=== PATIENT | male | born 1965 | race Caucasian/White ===

== ENCOUNTER → 2017-03-31 09:00 | Day surgery (SDC) | payer OTHER ==
[~2017-03-31 09:00] MED LIST: Buffered Lidocaine 0.9% SYRIN* 5 ML/SYR SYRINGE INTRADERM ONE; Buffered Lidocaine 0.9% SYRIN* 5 ML/SYR SYRINGE ONE; Bupivacaine 0.25% SDV* 30 ML ONE; Clindamycin 900 MG IVPREMIX(* 900 MG/50 ML SDV IV ONE; DiMENhydriNATE IV* 50 MG/ML VIAL IV PUSH PRN; Lidocaine 1% MPF wEPI 200,000* 30 ML SDV ONE; Lidocaine 2% PF * 5 ML VIAL ONE; Propofol* 10 MG/ML 20 ML BTL IV PUSH ONE; Sodium Citrate/Citric Acid* 15 ML UDC ONE; Sodium Citrate/Citric Acid* 15 ML UDC PO ONE; celeCOXIB CAP* 100 MG ONE; celeCOXIB CAP* 200 MG PO ONE; fentaNYL* 50 MCG/ML 2 ML VIAL (100 MCG VIAL) IV PRN; fentaNYL* 50 MCG/ML 2 ML VIAL (100 MCG VIAL) ONE; oxyCODONE/Acetamin 5/325 MG* TAB ONE; oxyCODONE/Acetamin 5/325 MG* TAB PO PRN
[2017-03-31 13:33] VITALS: BP 113/85
--- NOTE | 2017-04-01 07:44 | OP ---
DATE OF OPERATION: 03/31/17 [facility] DATE OF : 63 ATTENDING SURGEON: Parth Alvarado MD SURVEY METHODOLOGIST: None. ANESTHESIOLOGIST: Dr. Kelly. ANESTHESIA: General. PRE-OP DIAGNOSIS: Right knee medial meniscus tear. POST-OP DIAGNOSES: Right knee medial and lateral meniscus tears with minimal osteoarthritis. OPERATIVE PROCEDURES: 1. Right knee partial medial meniscectomy. 2. Partial lateral meniscectomy. 3. Small chondroplasty. COMPLICATIONS: None. ESTIMATED BLOOD LOSS: Minimal. INDICATIONS: Aroldo Yates is a 51-year-old male who sustained injury to his knee. He has had mechanical symptoms of medial catching and locking of the knee. He has failed conservative management and elected to proceed with operative procedure. He has minimal arthritis based on x-rays and MRIs and was ready to proceed with surgery. Risks include but are not limited to bleeding, infection, damage to nerves, vessels, surrounding structures, wound nonhealing, persistent pain, need for further surgery, scaring stiffness, risk of anesthesia , and risk of DVT; he had elected to proceed. DESCRIPTION OF PROCEDURE: The patient was greeted in the attending surgeon. Correct extremity was marked, consent was confirmed. The patient was brought back to the operative suite where he was placed in the supine position on the operating room table. He then underwent general anesthesia with LMA intubation after which an unsterile tourniquet was placed high in the proximal thigh. The lateral post was positioned properly. The right leg was then prepped and draped in the usual sterile fashion beginning with chlorhexidine soap, scrub, and alcohol wipe, and a final prep with ChloraPrep. After appropriate surgical pause indicating side, site, procedure, and administration of antibiotics an 18-gauge needle was used to inject 30 cc of sterile saline into the the knee to insufflate this. The lateral portal was made in an outside-in fashion. The scope was positioned in the joint, the joint was examined. There were grade 0 to 1 changes in the patello-femoral joint with no chondromalacia. Medial and lateral gutters were intact but with abundant hyperemia, but no loose bodies. The scope was positioned into the notch. There was abundant hyperemic tissue there and the anteromedial portal was made using an 18 gauge needle for localization and shaver was used to debride the tissues back. The tissue was very friable and the knee was quite injected; therefore, electrocautery was used to help maintain hemostasis. The ACL was intact, PCL was intact. The scope was brought to the medial compartment. There were grade 0 to 1 changes at the medial femoral condyle and medial tibial plateau. There is abundant degenerative complex tear of the medial meniscus involving the posterior horn and the body with unstable flaps. The shaver and biters were used to debride this back. The probe was then used to make sure that there were no trapped flaps in the gutters. Once this was completed attention was directed to the lateral compartment. The lateral compartment had grade 0 changes. The lateral tibial plateau had areas of grade 1 to 2 changes anteriorly and then grade 0 to 1 changes posteriorly. There was tearing and mild fraying of the body of the meniscus as well as the posterior horn of the lateral meniscus. This was debrided back using a shaver. Small chondroplasty was done of the plateau. Once this was done attention was directed back to the medial compartment to make sure there was again no debris and no free flaps remaining. The scope was placed in the supra-patellar pouch and there was a small area of grade 1 chondrosis of the patellar facet that was superior laterally based. The knee was sterile lavaged with sterile saline. All loose fluid and debris was removed from the joint. The wounds were irrigated with sterile saline. They were closed with 3-0 nylon in an interrupted fashion. The knee was intra-articularly injected with 0.25% Marcaine plain. Sterile dressings were applied as well as the Cryo/Cuff. He was awoken from anesthesia and transferred to PACU in stable condition. POSTOPERATIVE PLAN: He will be weight bearing as tolerated with range of motion as tolerated. He will be sent home on pain medication and will be on aspirin twice a day for approximately 10 days for DVT prophylaxis. He has no personal history of DVT but he has a brother who did. I will see the patient back in 10 to 14 days. [id number]/[facility] #: [id number] JAME
== END | disposition home or self-care (01) ==
LOC: OR 09:00
PROVIDERS: ATTEND Orthopaedic Surgery
DX: S83.231A Complex tear of medial meniscus, current injury, right knee, initial encounter (principal); S83.281A Other tear of lateral meniscus, current injury, right knee, initial encounter; M17.11 Unilateral primary osteoarthritis, right knee; X58.XXXA Exposure to other specified factors, initial encounter; Y92.9 Unspecified place or not applicable; Z88.0 Allergy status to penicillin
CPT/HCPCS: A9270-GY; J2001; J2704; J3010

== ENCOUNTER 2017-05-16 05:49 | Emergency (ER) | payer OTHER ==
[2017-05-16 06:41] LABS: Hematocrit 44 % (42-52); Mean Corpuscular HGB Conc 34 g/dl (31-36); Mean Corpuscular Hemoglobin 31 pg (27-31); Mean Corpuscular Volume 92 fL (80-94); Mean Platelet Volume 8 um3 (7.4-10.4); Red Blood Count 4.78 10^6/ul (4.0-5.4); Red Cell Distribution Width 13 % (10.5-15); White Blood Count 5.3 10^3/ul (3.5-10.8)
--- NOTE | 2017-05-16 06:54 | ED ---
Ernestine Dozier Edward, scribed for Sanford Borrero on 05/16/17 at 0616 . GI/ HPI - HPI Summary HPI Summary: 51 y/o male presents to the ED c/o bilateral flank pain described as a tight, pressure that woke up him this morning. The pain starts at the R groin but radiates along the bottom of the ABD to both flanks. The pt also c/o intermittent sharp pain in the same area. Denies fever, blood in urine. Sx bowel resection 6 years ago, knee surgery. - History of Current Complaint Chief Complaint: EDFlankPain Stated Complaint: ABDOMINAL PAIN Hx Obtained From: Patient Onset/Duration: Started Minutes Ago Timing: Constant, Intermittent - sharp pain is intermittent Pain Intensity: 0 Location of Pain: Groin - R groin Pain Radiates to: Flank - bilateral Associated Signs and Symptoms: Positive: Flank Pain. Negative: Fever, Hematuria - Allergy/Home Medications Allergies/Adverse Reactions: Allergies Allergy/AdvReac Type Severity Reaction Status Date / Time Morphine Allergy Severe Vomiting Verified 05/16/17 05:54 Penicillin G Allergy Unknown Rash And Verified 05/16/17 05:54 Itching PMH/Surg Hx/FS Hx/Imm Hx Previously Healthy: No Endocrine/Hematology History: Denies: Hx Diabetes Cardiovascular History: Denies: Hx Hypertension, Hx Pacemaker/ICD GI History: Reports: Hx Gastroesophageal Reflux Disease, Hx Hiatal Hernia, Other GI Disorders - hx diverticulitis with colon resection 2011 History: Reports: Other Problems/Disorders - BPH, TAKES RX Denies: Hx Renal Disease Musculoskeletal History: Reports: Other Musculoskeletal History - meniscal tear right knee Sensory History: Reports: Hx Contacts or Glasses - GLASSES Denies: Hx Hearing Aid Opthamlomology History: Reports: Hx Contacts or Glasses - GLASSES Psychiatric History: Denies: Hx Panic Disorder - Surgical History Surgery Procedure, Year, and Place: bowel resection r/t diverticulitis 2011, [facility] Hx Anesthesia Reactions: No Infectious Disease History: No Infectious Disease History: Denies: Hx Hepatitis, Traveled Outside the [place] in Last 30 Days - Family History Known Family History: Positive: Hypertension, Other - arthritis. Father - colon CA. Brother - prostate CA, skin CA. - Social History Alcohol Use: Weekly Alcohol Amount: 4 DRINKS/WEEK Hx Substance Use: No Substance Use Type: Reports: None Hx Tobacco Use: Yes Smoking Status (MU): Former Smoker Type: Cigarettes Amount Used/How Often: SOCIAL SMOKER, 2 CIGARETTES/DAY FOR 2 YRS Length of Time of Smoking/Using Tobacco: 2 YRS Have You Smoked in the Last Year: No Review of Systems Constitutional: Negative Eyes: Negative ENT: Negative Cardiovascular: Negative Respiratory: Negative Gastrointestinal: Negative Positive: flank pain - starting at R groin Musculoskeletal: Negative Skin: Negative Neurological: Negative Psychological: Normal All Other Systems Reviewed And Are Negative: Yes Physical Exam Triage Information Reviewed: Yes Vital Signs On Initial Exam: Initial Vitals Temp Pulse Resp BP Pulse Ox 97.2 F 78 14 151/105 98 05/16/17 05:51 05/16/17 05:51 05/16/17 05:51 05/16/17 05:51 05/16/17 05:51 Vital Signs Reviewed: Yes Appearance: Positive: Well-Appearing, No Pain Distress Skin: Positive: Warm, Skin Color Reflects Adequate Perfusion, Dry Head/Face: Positive: Normal Head/Face Inspection Eyes: Positive: EOMI, DARINEL ENT: Positive: Normal ENT inspection Neck: Positive: Supple, Nontender Respiratory/Lung Sounds: Positive: Clear to Auscultation, Breath Sounds Present Cardiovascular: Positive: RRR, Pulses are Symmetrical in both Upper and Lower Extremities Abdomen Description: Positive: Soft, Other: - Mild tenderness @ RLQ Bowel Sounds: Positive: Present Musculoskeletal: Positive: Normal, Strength/ROM Intact Neurological: Positive: Normal, Sensory/Motor Intact, Alert, Oriented to Person Place, Time Psychiatric: Positive: Normal Diagnostics - Vital Signs Vital Signs Temp Pulse Resp BP Pulse Ox 05/16/17 05:51 97.2 F 78 14 151/105 98 - Laboratory Lab Results: Lab Results 05/16/17 Range/Units 06:30 WBC 5.3 (3.5-10.8) 10^3/ul RBC 4.78 (4.0-5.4) 10^6/ul Hgb 15.0 (14.0-18.0) g/dl Hct 44 (42-52) % MCV 92 (80-94) fL MCH 31 (27-31) pg MCHC 34 (31-36) g/dl RDW 13 (10.5-15) % Plt Count 229 (150-450) 10^3/ul MPV 8 (7.4-10.4) um3 Neut % (Auto) 66.0 (38-83) % Lymph % (Auto) 21.7 L (25-47) % [place] % (Auto) 8.6 (1-9) % Eos % (Auto) 2.6 (0-6) % Baso % (Auto) 1.1 (0-2) % Absolute Neuts (auto) 3.5 (1.5-7.7) 10^3/ul Absolute Lymphs (auto) 1.2 (1.0-4.8) 10^3/ul Absolute Monos (auto) 0.5 (0-0.8) 10^3/ul Absolute Eos (auto) 0.1 (0-0.6) 10^3/ul Absolute Basos (auto) 0.1 (0-0.2) 10^3/ul Absolute Nucleated RBC 0 10^3/ul Nucleated RBC % 0 Result Diagrams: 05/16/17 06:30 Lab Statement: Any lab studies that have been ordered have been reviewed, and results considered in the medical decision making process. GIGU Course/Dx - Course Assessment/Plan: 51 y/o male presents to the ED c/o bilateral flank pain described as a tight, pressure that woke up him this morning. The pain starts at the R groin but radiates along the bottom of the ABD to both flanks. The pt also c/o intermittent sharp pain in the bilateral flanks. Denies fever, blood in urine. Sx bowel resection 6 years ago, knee surgery. Pt will be signed out to Dr. Mcpherson at shift change pending CT results and dispo. - Diagnoses Differential Diagnoses - Male: Diverticulitis, Appendicitis, Renal Colic, Urinary Tract Infection Provider Diagnoses: flank pain , rule out renal calculi Discharge - Discharge Plan Condition: Stable Disposition: OTHER Discharge Disposition Comment: Pt will be signed out to Dr. Mcpherson pending CT results and dispo Referrals: Santiago Landeros MD [Primary Care Provider] - The documentation as recorded by the Ernestine iglesias Edward accurately reflects the service I personally performed and the decisions made by Gissell corral Emmanuel.
[2017-05-16 06:56] LABS: Albumin 4.4 g/dL (3.2-5.2); BUN/Creatinine Ratio 12.5 (8-20); Calcium 9.6 mg/dL (8.6-10.3); EGFR African American 88.5 (>60); EGFR Non-African American 68.8 (>60); Globulin 2.8 g/dL (2-4); Potassium 3.7 mmol/L (3.5-5.0); Total Bilirubin 0.8 mg/dL (0.2-1.0); Total Protein 7.2 g/dL (6.4-8.9)
[2017-05-16 07:08] LABS: Urine Bilirubin Negative (Negative); Urine Glucose Negative (Negative); Urine Nitrite Negative (Negative)
[2017-05-16] MEDS ORDERED: Magnesium CITRATE* 300 ML BTL PO ONE (07:47)
[2017-05-16] MEDS ORDERED: Polyethylene Glycol 3350* 17 GM PACKET PO PRN (07:47)
[2017-05-16 08:06] VITALS: BP 141/76
--- NOTE | 2017-05-16 09:53 | PN ---
Ese Dozier SooYoung, scribed for Jeffry Mcpherson MD on 05/16/17 at 0754 . Progress Note - Progress Note Date of Service: 05/16/17 Note: Sign out from Dr. Borrero at shift change, pending CT A/P results. 0752: ED physician at bedside Reviewing CT A/P results with pt. Pt voiced understanding. DIAGNOSTIC: ABD/PEL CT as read by radiologist: Negative for L or R urinary tract stone or obstruction. No bowel obstruction. Abundant stool in the colon/constipation. Nml appy. Negative for diverticulitis or colitis. Somewhat enlarged prostate. Nml liver. Nml gallbladder. Nml spleen. Nml pancreas. Nml adrenal glands. Otherwise no acute abnormalities. ED physician has reviewed this radiology report and agrees. I believe all symptoms are secondary to his constipation. Patient given Miralax and magnesium citrate. Will discharge patient home with F/U of PCP. I discussed all the findings and test results with the patient. Patient was instructed to return to the emergency room immediately if any of the symptoms return or worsens. Plan of care was discussed with the patient and understands and agrees. All questions were answered at patient satisfaction. There were no further complaints or concerns. Lung exam before discharge: CTA B/L. Good air exchange. No wheezing or crackles heard. CVS: S1 and S2 present. No murmurs appreciated. Patient is alert and oriented x 3. Patient is hemodynamically stable. Patient will be discharged home with follow up PCP in the next 2-3 days DX: Constipation. Abd pain. DISPO: Stable, home. F/U with PCP in 2 days. Rx: Miralax and Mg Citrate. The documentation as recorded by the Ese iglesias SooYoung accurately reflects the service I personally performed and the decisions made by Ky corral Walter, MD.
--- NOTE | 2017-05-16 09:57 | RAD ---
INDICATION: Intermittent RIGHT flank pain for several weeks. Previous bowel resection due to diverticulitis. COMPARISON: April 29, 2016 TECHNIQUE: Multidetector CT images were obtained from the lung bases to the ischial tuberosities. Evaluation of the viscera is limited without IV contrast. Multiplanar reformation. REPORT: Unremarkable visualized inferior thorax. The liver, gallbladder, pancreas, and spleen are unremarkable. Negative for CT abnormality of the upper GI, small bowel, retrocecal appendix. Distal sigmoid bowel anastomosis. Hyperdense enteric contrast appearing material versus food stuff within the colon. No suspicious finding of the colon. Negative for ascites, free air, hernias. Normal adrenal glands. Small LEFT parapelvic renal cysts. Negative for hydronephrosis. Unremarkable RIGHT ureter. Small vascular calcification visualized adjacent to the distal LEFT ureter without concern. No periureteral inflammatory change. Unremarkable urinary bladder. Negative for lymphadenopathy. Mild atherosclerotic calcification of normal diameter abdominal aorta and iliac arteries. Physiologic distention of the IVC. Reactive endplate sclerosis at L5-S1 due to degenerative spondylosis without change. Mild anterior column compression deformity at the superior endplate of L2 without change. No suspicious focal osseous lesions. IMPRESSION: 1. Negative for urolithiasis or hydronephrosis. 2. No acute abdominal pelvic pathologic process evident.
== END 2017-05-16 08:06 | disposition home or self-care (01) ==
LOC: ED 05:49
DX: R10.9 Unspecified abdominal pain (principal); F17.210 Nicotine dependence, cigarettes, uncomplicated; Z88.5 Allergy status to narcotic agent; Z88.0 Allergy status to penicillin; K21.9 Gastro-esophageal reflux disease without esophagitis; K59.00 Constipation, unspecified
CPT/HCPCS: 36415; 74176; 80053; 81003; 83690; 85025; 99282; A9270-GY

== ENCOUNTER 2017-05-18 05:14 | Emergency (ER) | payer OTHER ==
[2017-05-18 06:16] LABS: Hematocrit 45 % (42-52); Hemoglobin 15.2 g/dl (14.0-18.0); Mean Corpuscular HGB Conc 34 g/dl (31-36); Mean Corpuscular Hemoglobin 31 pg (27-31); Mean Corpuscular Volume 92 fL (80-94); Mean Platelet Volume 8 um3 (7.4-10.4); Red Cell Distribution Width 13 % (10.5-15); White Blood Count 5.6 10^3/ul (3.5-10.8)
[2017-05-18 06:27] LABS: Urine Bilirubin Negative (Negative); Urine Glucose Negative (Negative); Urine Nitrite Negative (Negative)
[2017-05-18 06:36] LABS: Albumin 4.3 g/dL (3.2-5.2); BUN/Creatinine Ratio 9.8 (8-20); Calcium 9.7 mg/dL (8.6-10.3); EGFR African American 72.6 (>60); EGFR Non-African American 56.5 (>60); Globulin 2.8 g/dL (2-4); Total Bilirubin 0.8 mg/dL (0.2-1.0); Total Protein 7.1 g/dL (6.4-8.9)
[2017-05-18 06:44] VITALS: BP 140/95
--- NOTE | 2017-05-18 06:44 | ED ---
Mounika Dozier Thomas, scribed for Sanford Brorero on 05/18/17 at 0535 . Abdominal Pain/Male - HPI Summary HPI Summary: The pt is a 51 y/o M presenting to the ED c/o RLQ pain that began 5-7 days ago but worsened last night. The pain is described as sharp. The pain is intermittent. The pain is rated 10/10. The pain is aggravated by nothing and is alleviated by nothing. Previously, the patient was constipated, although he took laxatives and had a BM. Pt denies N/V/D. - History of Current Complaint Chief Complaint: EDAbdPain Stated Complaint: RLQ PAIN Time Seen by Provider: 05/18/17 05:23 Hx Obtained From: Patient Onset/Duration: Lasting Days - onset of pain 5-7 days ago, Still Present, Worse Since - last night Timing: Intermittent Severity Currently: Severe Pain Intensity: 10 Pain Scale Used: 0-10 Numeric Location: Discrete At: RLQ Radiates: No Character: Sharp Aggravating Factor(s): Nothing Alleviating Factor(s): Nothing Associated Signs And Symptoms: Positive: Constipation - earlier, patient was constipated, but he took laxatives. Negative: Nausea, Vomiting, Diarrhea - Allergies/Home Medications Allergies/Adverse Reactions: Allergies Allergy/AdvReac Type Severity Reaction Status Date / Time Morphine Allergy Severe Vomiting Verified 05/18/17 05:20 Penicillin G Allergy Unknown Rash And Verified 05/18/17 05:20 Itching PMH/Surg Hx/FS Hx/Imm Hx Previously Healthy: No Endocrine/Hematology History: Denies: Hx Diabetes Cardiovascular History: Denies: Hx Hypertension, Hx Pacemaker/ICD GI History: Reports: Hx Gastroesophageal Reflux Disease, Hx Hiatal Hernia, Other GI Disorders - hx diverticulitis with colon resection 2011 History: Reports: Other Problems/Disorders - BPH, TAKES RX Denies: Hx Renal Disease Musculoskeletal History: Reports: Other Musculoskeletal History - meniscal tear right knee Sensory History: Reports: Hx Contacts or Glasses - GLASSES Denies: Hx Hearing Aid Opthamlomology History: Reports: Hx Contacts or Glasses - GLASSES Psychiatric History: Denies: Hx Panic Disorder - Surgical History Surgery Procedure, Year, and Place: bowel resection r/t diverticulitis 2011, [facility] Hx Anesthesia Reactions: No - Immunization History Date of Tetanus Vaccine: unk Date of Influenza Vaccine: 2017 Infectious Disease History: No Infectious Disease History: Denies: Hx Hepatitis, Traveled Outside the [place] in Last 30 Days - Family History Known Family History: Positive: Hypertension, Other - arthritis. Father - colon CA. Brother - prostate CA, skin CA. - Social History Alcohol Use: Weekly Alcohol Amount: 4 DRINKS/WEEK Hx Substance Use: No Substance Use Type: Reports: None Hx Tobacco Use: Yes Smoking Status (MU): Former Smoker Type: Cigarettes Amount Used/How Often: SOCIAL SMOKER, 2 CIGARETTES/DAY FOR 2 YRS Length of Time of Smoking/Using Tobacco: 2 YRS Have You Smoked in the Last Year: No Review of Systems Negative: Fever Positive: Abdominal Pain - sharp, RLQ, Other - Constipation. Negative: Vomiting , Diarrhea, Nausea All Other Systems Reviewed And Are Negative: Yes Physical Exam - Summary Physical Exam Summary: Appearance: Well appearing, no pain distress Skin: warm, dry, reflects adequate perfusion Head/face: normal Eyes: EOMI, DARINEL ENT: normal Neck: supple, nontender Respiratory: CTA, breath sounds present Cardiovascular: RRR, pulses symmetrical Abdomen: soft. He has mild discomfort to palpation in his RLQ. Bowel: present Musculoskeletal: normal, strength/ROM intact Neuro: normal, sensory motor intact, A&Ox3 Triage Information Reviewed: Yes Vital Signs On Initial Exam: Initial Vitals Temp Pulse Resp BP Pulse Ox 97.3 F 109 18 153/113 95 05/18/17 05:17 05/18/17 05:17 05/18/17 05:17 05/18/17 05:17 05/18/17 05:17 Vital Signs Reviewed: Yes Diagnostics - Vital Signs Vital Signs Temp Pulse Resp BP Pulse Ox 05/18/17 05:17 97.3 F 109 18 153/113 95 - Laboratory Lab Results: Lab Results 05/18/17 05/18/17 05/18/17 Range/Units 06:02 06:02 06:08 WBC 5.6 (3.5-10.8) 10^3/ul RBC 4.90 (4.0-5.4) 10^6/ul Hgb 15.2 (14.0-18.0) g/dl Hct 45 (42-52) % MCV 92 (80-94) fL MCH 31 (27-31) pg MCHC 34 (31-36) g/dl RDW 13 (10.5-15) % Plt Count 253 (150-450) 10^3/ul MPV 8 (7.4-10.4) um3 Neut % (Auto) 65.7 (38-83) % Lymph % (Auto) 22.0 L (25-47) % [place] % (Auto) 9.8 H (1-9) % Eos % (Auto) 1.6 (0-6) % Baso % (Auto) 0.9 (0-2) % Absolute Neuts (auto) 3.7 (1.5-7.7) 10^3/ul Absolute Lymphs (auto) 1.2 (1.0-4.8) 10^3/ul Absolute Monos (auto) 0.5 (0-0.8) 10^3/ul Absolute Eos (auto) 0.1 (0-0.6) 10^3/ul Absolute Basos (auto) 0 (0-0.2) 10^3/ul Absolute Nucleated RBC 0 10^3/ul Nucleated RBC % 0 Sodium 136 (133-145) mmol/L Potassium 4.0 (3.5-5.0) mmol/L Chloride 103 (101-111) mmol/L Carbon Dioxide 28 (22-32) mmol/L Anion Gap 5 (2-11) mmol/L BUN 13 (6-24) mg/dL Creatinine 1.33 H (0.67-1.17) mg/dL Est GFR ( Amer) 72.6 (>60) Est GFR (Non-Af Amer) 56.5 (>60) BUN/Creatinine Ratio 9.8 (8-20) Glucose 104 H (70-100) mg/dL Calcium 9.7 (8.6-10.3) mg/dL Total Bilirubin 0.80 (0.2-1.0) mg/dL AST 14 (13-39) U/L ALT 13 (7-52) U/L Alkaline Phosphatase 53 (34-104) U/L Troponin I 0.00 (<0.04) ng/mL Total Protein 7.1 (6.4-8.9) g/dL Albumin 4.3 (3.2-5.2) g/dL Globulin 2.8 (2-4) g/dL Albumin/Globulin Ratio 1.5 (1-3) Lipase 12 (11.0-82.0) U/L Urine Color Yellow Urine Appearance Clear Urine pH 6.0 (5-9) Ur Specific [place] 1.017 (1.010-1.030) Urine Protein Negative (Negative) Urine Ketones Negative (Negative) Urine Blood Negative (Negative) Urine Nitrate Negative (Negative) Urine Bilirubin Negative (Negative) Urine Urobilinogen Negative (Negative) Ur Leukocyte Esterase Negative (Negative) Urine Glucose Negative (Negative) Urine Ascorbic Acid * H (Negative) Result Diagrams: 05/18/17 06:02 05/18/17 06:02 Lab Statement: Any lab studies that have been ordered have been reviewed, and results considered in the medical decision making process. - Radiology XR Abdomen Xray Interpretation: No Acute Changes - Fecal impaction Radiology Interpretation Completed By: ED Physician Abdominal Pain Fem Course/Dx - Course Assessment/Plan: The pt is a 51 y/o M c/o RLQ pain that began 5-7 days ago but worsened last night. Bloodwork, UA, and imaging were obtained. The patient will be discharged with follow up with primary care in 3 days. - Diagnoses Differential Diagnosis/HQI/PQRI: Bowel Obstruction, Urinary Tract Infection, Other - constipation Provider Diagnoses: Abdominal pain, Constipation Discharge - Discharge Plan Condition: Stable Disposition: HOME Patient Education Materials: Abdominal Pain (ED), Constipation (ED) Referrals: Santiago Landeros MD [Primary Care Provider] - 3 Days Additional Instructions: Follow up with your primary care provider in three days. Return to the emergency room for any new or worsening symptoms. The documentation as recorded by the Mounika iglesias Thomas accurately reflects the service I personally performed and the decisions made by Gissell corral Emmanuel.
--- NOTE | 2017-05-18 08:19 | RAD ---
INDICATION: Right flank pain COMPARISON: CT abdomen pelvis May 16, 2017 TECHNIQUE: 2 views the abdomen were obtained. FINDINGS: A large amount of stool is noted overlying the cecum and a sending colon. There is mostly gas and stool overlying the more distal colon including the rectum. There are no obvious coarse calcifications overlying the expected location of the bilateral collecting systems or ureters. There is surgical material at the midline pelvis. IMPRESSION: 1. NO LARGE RENAL CALCULI VISUALIZED. 2. INCIDENTALLY NOTED IS A LARGE AMOUNT OF STOOL OVERLYING THE CECUM AND ASCENDING COLON. PLEASE CORRELATE TO SIGNS AND SYMPTOMS OF CONSTIPATION.
== END 2017-05-18 06:49 | disposition home or self-care (01) ==
LOC: ED 05:14
DX: R10.31 Right lower quadrant pain (principal); K59.00 Constipation, unspecified; K21.9 Gastro-esophageal reflux disease without esophagitis; Z87.891 Personal history of nicotine dependence
CPT/HCPCS: 36415; 74000; 80053; 81003; 83690; 84484; 85025; 99282

== ENCOUNTER 2019-01-28 18:12 | Emergency (ER) | payer OTHER ==
--- OUTSIDE RECORDS SUMMARY | 2019-01-28 18:35 | XMS REPORT | Continuity of Care Document ---
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 Onset: 01/29/2011 Benign prostatic hypertrophy without Roopa Snider M.D. Onset: 01/29/2011 outflow obstruction Neck pain Roopa Snider M.D. Onset: 09/14/2011 Colitis, enteritis and gastroenteritis Roopa Snider M.D. Onset: 12/01/2011 presumed infectious Disorder of shoulder Roopa Snider M.D. Onset: 12/08/2011 Right lower quadrant pain Roopa Snider M.D. Onset: 12/29/2011 Diverticulitis of colon Roopa Snider M.D. Onset: 01/14/2012 Hemorrhoids without complication Roopa Snider M.D. 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 Onset: 02/02/2012 Generalized abdominal pain Roopa Snider M.D. Onset: 09/16/2012 Acute pharyngitis Roopa Snider M.D. Onset: 09/19/2012 Localized, primary osteoarthritis of the Roopa Snider M.D. Onset: 2013 hand Bunion Roopa Snider M.D. Onset: 07/31/2013 First degree hemorrhoids Mulugeta Ha M.D. Onset: 07/15/2015 Gastroesophageal reflux disease Roopa Snider M.D. Onset: 10/04/2015 Nausea Roopa Snider M.D. Onset: 05/17/2017 Irritable bowel syndrome characterized by Roopa Snider M.D. Onset: 2017 constipation Right upper quadrant pain Roopa Snider M.D. Onset: 08/01/2018 Family History Date Family Member(s) Observation Comments Father due to Parkinson's Disease () Father Colon Cancer Father Prostate Cancer Mother due to Stroke () Mother Hypertension Mother Chronic Obstructive Pulmonary Disease (COPD) First Brother Prostate Cancer Second Brother Colon Polyps Social History Type Date Description Comments Sex Unknown Marital Status Patient is Living Situation Lives with spouse Diet Diet is healthy and well balanced Occupation [employer] Currently working Tobacco Use Start: Unknown Nonsmoker Smoking Status Reviewed: 05/21/17 Nonsmoker ETOH Use Social Alcohol Tobacco Use Start: Unknown Patient has never smoked Exercise Type/Frequency Exercises regularly Current Allergies, Adverse Reactions, Alerts Active Allergies Reaction Severity Comments Date Penicillin Rash 02/02/2012 Morphine 04/13/2017 Inactive Allergies NKDA 09/14/2011 Medications Active Medications SIG Qnty Indications Ordering Date Provider Magnesium Citrate 1 gm nightly Roopa Snider, 08/01/2018 M.D. 200mg Tablets Pepcid 1 PO bid For Stomach 60tabs Roopa Snider, 08/01/2018 20mg Tablets M.D. Dicyclomine HCL 1-2 four times a day 120caps Roopa Snider, 07/07/2018 as needed cramping M.D. 10mg Capsules or abd pain Linzess 3 by mouth every day 90caps K58.1 Roopa Snider, 03/15/2018 72mcg as needed for M.D. Capsules constipation Uroxatral 1 po qd For BPH Unknown 10mg Tablets ER 24HR History Medications Magnesium Citrate 1.5 GM Nightly Roopa Osborne 11/01/2017 - 200mg Leti M.DJohn 03/25/2018 Tablets Miralax 17 grams every day 48units Roopa Osborne 10/04/2017 - 3350NF Packet with large glass Manjit Snider.DJohn 11/01/2017 water as needed. Linzess take one capsule by 30caps K58.1 Roopa Osborne 10/04/2017 - 145mcg Capsules mouth every morning Leti M.DJohn 03/15/2018 prior to breakfast for constipation Dicyclomine HCL 1-2 four times a day 60caps Roopa Osbonre 10/04/2017 - 10mg as needed cramping or Midgiacomo, M.DJohn 11/01/2017 Capsules abd pain Mupirocin apply topically three 44gm M79.67 Rayna Anderson, 08/18/2017 - 2% Ointment times a day to 5 [facility] 10/04/2017 affected area(s) Amitriptyline HCL take 1 to 3 tablets 60tabs F41.1 Rayna Anderson, 2017 - 10mg by mouth at bedtime [facility] 10/04/2017 Tablets Ondansetron take one tablet by 30tabs R11.0 Roopa Osborne 05/17/2017 - 4mg Tablets mouth four times a Ana SniderDJohn 2017 Dispers day as needed for nausea Cyclobenzaprine HCL take 1 tablet by 30tabs Mulugeta Cowan 04/14/2017 - 5mg mouth three times a Holli Ha 04/24/2017 Tablets day For Muscle Spasm Omeprazole 1 by mouth every day 30caps K21.9 Roopa Osborne 10/04/2015 - 20mg Capsules as needed for Leti M.DJohn 04/13/2017 DR nathan No Active Medications Unknown 06/26/2015 - 10/04/2015 Ciprofloxacin HCL 1 by mouth twice a 20tabs Roopa Osborne 03/19/2015 - 250mg day Ana SniderDJohn 06/26/2015 Tablets No Active Medications Unknown 11/21/2014 - 03/19/2015 Anusol-HC apply twice a day as 30mg Roopa Osborne 04/23/2014 - 2.5% Cream needed Holli Snider 11/21/2014 Anusol-HC 1 per rectum bid prn 12units Roopa Osborne 04/23/2014 - 25mg Holli Snider 11/21/2014 Suppository No Active Medications Unknown 01/24/2014 - 04/23/[address] of rectum 28units 455.6 Blaise Brandon, 2012 - twice a day M.DJohn 07/31/2013 25mg Suppository No Active Medications Unknown 11/10/2012 - 06/16/2013 Azithromycin 2 po today and 1 po x 6tabs Roopa Osborne 09/20/2012 - 250mg 4 days Holli Snider 11/10/2012 Tablets No Active Medications Unknown 09/16/2012 - 09/19/2012 Physical Therapy treatment and Roopa Osborne 05/04/2012 - evaluation neck and Holli Snider 09/15/2012 left shoulder pain 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 No Holli Snider 09/15/2012 restrictions. Mupirocin apply tid 30gm 998.59 Roopa Osborne 02/02/2012 - 2% Ointment Holli Snider 09/15/2012 Sulfamethoxazole/Trime 1 po bid 20tabs 998.59 Roopa Osborne 02/02/2012 - thoprim DS Holli Snider 09/15/2012 800-160mg Tablets IV Change IV to be replaced and Roopa Osborne 01/12/2012 - left in for IV Holli Snider 02/02/2012 antibiotics dx: diverticulitis Work Excuse unable to work from Roopa Osborne 01/05/2012 - 12/30/11 until further Holli Snider 02/08/2012 notice due to illness. Anusol-HC 1 per rectum bid prn 12units Roopa Osborne 11/21/2007 - 25mg Holli Snider 09/15/2012 Suppository Physical Therapy treatment and Roopa Osborne 07/31/2004 - evaluation low back Holli Snider 03/08/2006 pain Naproxen 1 bid with food prn 40tabs Roopa Osorio. 07/31/2004 - 500mg Tablets Holli Snider 09/14/2011 Coumadin 2 qd Or as Directed 60tabs Roopa Osorio. - 2.5mg Tablets Holli Snider 09/15/2012 Pepcid take 1 tablet by Unknown - 10mg Tablets mouth qd prn 08/01/2018 Immunizations CPT Code Status Date Vaccine Lot # [id number] Given 05/17/2018 Influenza Vac, Quadriv[place], [place] [id number] Given 05/03/2017 Influenza Vac, [place], [place] [id number] Given 05/12/2016 Tdap Tetanus, W Pertussis [id number] Given 05/06/2016 Influenza Vac, [place] [id number] Given 04/17/2015 Influenza Vac, Quadrivalent, Slit Virus, Im Vital Signs Date Vital Result Comment 12/30/2018 1:18pm BP Systolic 110 mmHg BP Diastolic 72 mmHg Heart Rate 72 /min Body Temperature 97.8 F Respiratory Rate 18 /min Height 69.5 inches 5'9.50" Weight 168.00 lb BMI (Body Mass Index) 24.5 kg/m2 08/01/2018 3:13pm BP Systolic 110 mmHg BP Diastolic 76 mmHg Heart Rate 72 /min Body Temperature 98.0 F Respiratory Rate 16 /min Height 69.5 inches 5'9.50" Weight 172.00 lb BMI (Body Mass Index) 25.0 kg/m2 06/11/2018 10:52am BP Systolic 132 mmHg BP Diastolic 82 mmHg Heart Rate 68 /min Body Temperature 98.5 F Height 69.5 inches 5'9.50" Weight 172.00 lb BMI (Body Mass Index) 25.0 kg/m2 03/23/2018 3:30pm BP Systolic 116 mmHg BP Diastolic 82 mmHg Heart Rate 76 /min Body Temperature 97.5 F Height 69.5 inches 5'9.50" Weight 170.00 lb BMI (Body Mass Index) 24.7 kg/m2 03/02/2018 3:28pm BP Systolic 138 mmHg BP Diastolic 100 mmHg Heart Rate 72 /min Body Temperature 97.7 F Height 69.5 inches 5'9.50" Weight 170.00 lb BMI (Body Mass Index) 24.7 kg/m2 11/01/2017 2:41pm BP Systolic 120 mmHg BP Diastolic 70 mmHg Heart Rate 64 /min Body Temperature 98.0 F Respiratory Rate 16 /min Height 69.5 inches 5'9.50" Weight 169.00 lb BMI (Body Mass Index) 24.6 kg/m2 10/04/2017 10:06am BP Systolic 118 mmHg BP Diastolic 60 mmHg Heart Rate 64 /min Body Temperature 97.8 F Respiratory Rate 16 /min Height 69.5 inches 5'9.50" Weight 167.00 lb BMI (Body Mass Index) 24.3 kg/m2 08/18/2017 11:43am BP Systolic 110 mmHg BP Diastolic 78 mmHg Heart Rate 60 /min Body Temperature 98.0 F Respiratory Rate 16 /min Height 69.5 inches 5'9.50" Weight 164.00 lb BMI (Body Mass Index) 23.9 kg/m2 06/22/2017 3:43pm BP Systolic 118 mmHg BP Diastolic 78 mmHg Heart Rate 68 /min Body Temperature 98.1 F Respiratory Rate 16 /min Height 69.5 inches 5'9.50" Weight 166.50 lb BMI (Body Mass Index) 24.2 kg/m2 2017 8:56am BP Systolic 124 mmHg BP Diastolic 90 mmHg Heart Rate 88 /min Body Temperature 98.1 F Height 68.5 inches 5'8.50" measured 05/12/16 Weight 166.38 lb BMI (Body Mass Index) 24.9 kg/m2 05/17/2017 10:03am BP Systolic 120 mmHg BP Diastolic 80 mmHg Heart Rate 90 /min Body Temperature 98.1 F Respiratory Rate 16 /min Height 68.5 inches 5'8.50" measured 05/12/16 Weight 168.50 lb BMI (Body Mass Index) 25.2 kg/m2 05/14/2017 8:37am BP Systolic 126 mmHg BP Diastolic 80 mmHg Heart Rate 72 /min Body Temperature 97.7 F Respiratory Rate 16 /min Height 68.5 inches 5'8.50" measured 05/12/16 Weight 175.00 lb BMI (Body Mass Index) 26.2 kg/m2 04/13/2017 3:15pm Height 68.5 inches 5'8.50" measured 05/12/16 Weight 172.00 lb BMI (Body Mass Index) 25.8 kg/m2 05/12/2016 3:19pm BP Systolic 120 mmHg BP Diastolic 80 mmHg Heart Rate 72 /min Body Temperature 98.6 F Respiratory Rate 16 /min Height 68.5 inches 5'8.50" measured 05/12/16 Weight 172.12 lb BMI (Body Mass Index) 25.8 kg/m2 10/04/2015 2:01pm BP Systolic 128 mmHg BP Diastolic 84 mmHg Heart Rate 78 /min Body Temperature 98.1 F Respiratory Rate 16 /min Height 70 inches 5'10" Weight 182.12 lb BMI (Body Mass Index) 26.1 kg/m2 07/15/2015 10:06am BP Systolic 140 mmHg BP Diastolic 80 mmHg Heart Rate 68 /min Body Temperature 97.6 F Respiratory Rate 18 /min Height 70 inches 5'10" Weight 180.00 lb BMI (Body Mass Index) 25.8 kg/m2 06/26/2015 2:55pm BP Systolic 140 mmHg BP Diastolic 82 mmHg Heart Rate 76 /min Body Temperature 98.1 F Respiratory Rate 16 /min Height 70 inches 5'10" Weight 176.00 lb BMI (Body Mass Index) 25.3 kg/m2 03/19/2015 3:46pm BP Systolic 132 mmHg BP Diastolic 78 mmHg Heart Rate 68 /min Body Temperature 98.5 F Height 70 inches 5'10" Weight 174.00 lb BMI (Body Mass Index) 25.0 kg/m2 11/21/2014 1:55pm BP Systolic 120 mmHg BP Diastolic 80 mmHg Heart Rate 80 /min Body Temperature 98.3 F Respiratory Rate 18 /min Height 70 inches 5'10" Weight 176.00 lb BMI (Body Mass Index) 25.3 kg/m2 01/24/2014 11:23am BP Systolic 120 mmHg BP Diastolic 80 mmHg Heart Rate 68 /min Body Temperature 98.3 F Respiratory Rate 16 /min Height 70 inches 5'10" Weight 168.00 lb BMI (Body Mass Index) 24.1 kg/m2 07/31/2013 8:20am BP Systolic 124 mmHg BP Diastolic 82 mmHg Heart Rate 68 /min Body Temperature 97.8 F Respiratory Rate 16 /min Height 70 inches 5'10" Weight 178.00 lb BMI (Body Mass Index) 25.5 kg/m2 06/16/2013 1:18pm BP Systolic 122 mmHg BP Diastolic 74 mmHg Heart Rate 72 /min Body Temperature 97.4 F Height 70 inches 5'10" Weight 178.00 lb BMI (Body Mass Index) 25.5 kg/m2 05/01/2013 2:00pm BP Systolic 120 mmHg BP Diastolic 80 mmHg Heart Rate 92 /min Body Temperature 98.5 F Height 70 inches 5'10" Weight 170.00 lb BMI (Body Mass Index) 24.4 kg/m2 12/16/2012 8:18am BP Systolic 118 mmHg BP Diastolic 84 mmHg Heart Rate 78 /min Body Temperature 97.1 F Respiratory Rate 16 /min Height 70 inches 5'10" Weight 167.00 lb BMI (Body Mass Index) 24.0 kg/m2 11/10/2012 1:02pm BP Systolic 116 mmHg BP Diastolic 88 mmHg Heart Rate 90 /min Body Temperature 98.1 F Respiratory Rate 15 /min Height 70 inches 5'10" Weight 168.00 lb BMI (Body Mass Index) 24.1 kg/m2 09/19/2012 8:31am BP Systolic 100 mmHg BP Diastolic 70 mmHg Heart Rate 80 /min Body Temperature 97.5 F Height 70 inches 5'10" Weight 172.00 lb BMI (Body Mass Index) 24.7 kg/m2 09/16/2012 11:30am BP Systolic 130 mmHg BP Diastolic 88 mmHg Heart Rate 72 /min Body Temperature 98.1 F Height 70 inches 5'10" Weight 172.50 lb BMI (Body Mass Index) 24.7 kg/m2 02/02/2012 1:05pm BP Systolic 120 mmHg BP Diastolic 78 mmHg Heart Rate 72 /min Body Temperature 98.2 F Height 70 inches 5'10" Weight 166.00 lb BMI (Body Mass Index) 23.8 kg/m2 01/14/2012 11:28am BP Systolic 114 mmHg BP Diastolic 70 mmHg Heart Rate 68 /min Body Temperature 98.1 F Respiratory Rate 18 /min Height 70 inches 5'10" Weight 170.00 lb BMI (Body Mass Index) 24.4 kg/m2 12/29/2011 12:09pm BP Systolic 122 mmHg BP Diastolic 68 mmHg Heart Rate 110 /min Body Temperature 101.2 F Respiratory Rate 20 /min Height 70 inches 5'10" Weight 173.00 lb BMI (Body Mass Index) 24.8 kg/m2 12/08/2011 3:20pm BP Systolic 110 mmHg BP Diastolic 64 mmHg Heart Rate 60 /min Body Temperature 98.0 F Respiratory Rate 18 /min Height 70 inches 5'10" Weight 176.00 lb BMI (Body Mass Index) 25.3 kg/m2 12/01/2011 1:04pm BP Systolic 120 mmHg BP Diastolic 74 mmHg Heart Rate 66 /min Body Temperature 98.6 F Height 70 inches 5'10" Weight 178.00 lb BMI (Body Mass Index) 25.5 kg/m2 09/14/2011 1:59pm BP Systolic 132 mmHg BP Diastolic 80 mmHg Heart Rate 66 /min Body Temperature 98.3 F Height 70 inches 5'10" Weight 180.00 lb BMI (Body Mass Index) 25.8 kg/m2 01/29/2011 2:09pm BP Systolic 130 mmHg BP Diastolic 90 mmHg Heart Rate 72 /min Respiratory Rate 14 /min Height 70 inches 5'10" Weight 174.00 lb BMI (Body Mass Index) 25.0 kg/m2 08/21/2010 3:10pm BP Systolic 120 mmHg BP Diastolic 88 mmHg Heart Rate 72 /min Body Temperature 98.2 F Height 70 inches 5'10" Weight 181.00 lb BMI (Body Mass Index) 26.0 kg/m2 10/09/2009 4:04pm BP Systolic 140 mmHg BP Diastolic 88 mmHg Heart Rate 84 /min Height 70 inches 5'10" Weight 175.00 lb BMI (Body Mass Index) 25.1 kg/m2 08/30/2008 10:21am BP Systolic 138 mmHg BP Diastolic 84 mmHg Heart Rate 78 /min Body Temperature 98.1 F Height 70 inches 5'10" Weight 174.00 lb BMI (Body Mass Index) 25.0 kg/m2 Right Visual Acuity Distance 20/20 Corrected Left Visual Acuity Distance 20/20 Corrected 11/21/2007 8:14pm BP Systolic 114 mmHg BP Diastolic 64 mmHg Heart Rate 66 /min Height 70 inches 5'10" Weight 174.00 lb BMI (Body Mass Index) 25.0 kg/m2 06/28/2006 7:53pm BP Systolic 120 mmHg BP Diastolic 70 mmHg Heart Rate 76 /min Height 70 inches 5'10" Weight 175.00 lb BMI (Body Mass Index) 25.1 kg/m2 03/08/2006 6:08pm BP Systolic 120 mmHg BP Diastolic 76 mmHg Heart Rate 78 /min Height 70 inches 5'10" Weight 172.00 lb BMI (Body Mass Index) 24.7 kg/m2 10/09/2005 4:15pm BP Systolic 120 mmHg BP Diastolic 84 mmHg Body Temperature 98.5 F Height 70 inches 5'10" Weight 177.00 lb BMI (Body Mass Index) 25.4 kg/m2 07/31/2004 1:48pm BP Systolic 128 mmHg BP Diastolic 80 mmHg Heart Rate 72 /min Height 70 inches 5'10" Weight 173.00 lb BMI (Body Mass Index) 24.8 kg/m2 07/15/2004 3:33pm BP Systolic 130 mmHg BP Diastolic 80 mmHg Heart Rate 80 /min Height 70 inches 5'10" Weight 168.00 lb BMI (Body Mass Index) 24.1 kg/m2 07/02/2004 7:56pm BP Systolic 112 mmHg BP Diastolic 70 mmHg Heart Rate 80 /min Height 70 inches 5'10" Weight 172.00 lb BMI (Body Mass Index) 24.7 kg/m2 10/10/2003 6:34pm BP Systolic 128 mmHg BP Diastolic 88 mmHg Heart Rate 80 /min Height 70 inches 5'10" Weight 165.00 lb BMI (Body Mass Index) 23.7 kg/m2 Results Test Date Facility Test Result H/L Range Note Laboratory test [facility] Sedimentation Rate 3mm finding 9 (607)- - CBC Electronic [facility]) WBC 6.0 4.0-10.0 Fma 8 x10^3/UL RBC 5.12 x10^6/UL 3.93-6.00 HGB 16.1 g/dL 12.0-17.0 HCT 48 % 35-50 MCV 93.0 fL 80.0-95.0 MCH 31.4 pg 25.6-32.2 MCHC 33.8 g/dL 32.2-36.0 RDW-CV 12.8 % 11.6-14.4 PLT 250 x10^3/UL 163-400 MPV 10.4 fL 9.4-12.4 Jenny# 3.31 x10^3/UL 1.56-6.13 Lymph# 1.77 x10^3/UL 1.18-3.74 Sac# 0.55 x10^3/UL 0.24-0.82 Eos # 0.3 x10^3/UL 0.0-0.5 Baso # 0.02 x10^3/UL 0.01-0.08 Jenny% 55.8 % 34.0-70.0 Lymph % 29.7 % 20.0-52.0 Sac% 9.2 % 5.0-12.0 Eos% 4.7 % 0.7-7.0 Baso% 0.3 % 0.1-1.2 Comprehensive Metabolic 07/22/2018 [facility]ma) Sodium 140 mEq/L 134-149 Prof Potassium 4.9 mEq/L 3.6-5.5 Chloride 107 mEq/L 94-112 Carbon Dioxide 29 mEq/L 21-32 Glucose 94 mg/dL 70-105 BUN 19 mg/dL 6-26 Creatinine 1.1 mg/dL 0.6-1.4 BUN/Creat Ratio 17.3 CALC 8.0-36.0 Calcium 9.9 mg/dL 8.6-10.2 Total Protein 7.2 g/dL 6.4-8.3 Albumin 4.9 g/dL 3.8-5.5 Globulin 2.3 g/dL 2.0-4.8 A/G Ratio 2.1 CALC 0.6-2.3 Alk. Phosphatase 58 U/L 22-95 Alt (SGPT) 30 U/L 7-35 Ast (Sgot) 29 U/L 5-34 Total Bilirubin 0.6 mg/dL 0.2-1.3 GFR Non- >60 ml/min/1.73m^ >=60 GFR >60 ml/min/1.73m^ >=60 Lipid Profile 07/22/2018 [facility](fma) Cholesterol 251 mg/dL High 120-200 Triglycerides 155 mg/dL 30-200 HDL Cholesterol 48 mg/dL 30-70 LDL (Calculated) 172 CALC High 0-129 VLDL Cholesterol 31 mg/dL 0-50 HDL Risk Factor 5.2 CALC High 0.0-4.4 Laboratory test 07/22/2018 [facility](fma) PSA 1.0 ng/mL 0.0-4.0 finding Ict Hemoccult 06/27/2018 [facility] [place] [facility] Ict Hemoccult 06/12/18-NEG (Fma) (607)- - (1) Ict Hemoccult-(2) 06/13/18-NEG Ict-Hemoccult (3) 06/14/18-NEG Laboratory test 06/11/2018 [facility]ma) Amylase, Serum 67 U/L 20- 105 finding Hepatic 06/11/2018 [facility]ma) Total Protein 7.2 g/dL 6.4-8.3 Albumin 4.7 g/dL 3.8-5.5 Globulin 2.5 g/dL 2.0-4.8 A/G Ratio 1.9 CALC 0.6-2.3 Alk. Phosphatase 53 U/L 22-95 Alt (SGPT) 21 U/L 7-35 Ast (Sgot) 23 U/L 5-34 Total Bilirubin 0.5 mg/dL 0.2-1.3 Direct Bilirubn 0.2 mg/dL 0.0-0.6 Indirect Bilirubin 0.30 mg/dL 0.10-1.00 Laboratory test 06/11/2018 [facility] Lipase 32 U/L 13-78 1 finding [address] [place] [address] (607)- - Basic Metabolic 03/23/2018 [facility] Demond(fma) Sodium 136 mEq/L 134-149 Profile Potassium 4.4 mEq/L 3.6-5.5 Chloride 100 mEq/L 94-112 Carbon Dioxide 25 mEq/L 21-32 Glucose 90 mg/dL 70-105 BUN 10 mg/dL 6-26 Creatinine 0.7 mg/dL 0.6-1.4 BUN/Creat Ratio 14.3 CALC 8.0-36.0 Calcium 9.9 mg/dL 8.6-10.2 GFR Non- >60 ml/min/1.73m^ >=60 GFR >60 ml/min/1.73m^ >=60 Laboratory test 03/23/2018 [facility] Demond(fma) Magnesium, Serum 2.0 mEq/L 1.2-2.1 finding Basic Metabolic 11/01/2017 [facility] Demond(fma) Sodium 135 mEq/L 134-149 Profile Potassium 4.2 mEq/L 3.6-5.5 Chloride 97 mEq/L 94-112 Carbon Dioxide 25 mEq/L 21-32 Glucose 96 mg/dL 70-105 BUN 21 mg/dL 6-26 Creatinine 1.0 mg/dL 0.6-1.4 BUN/Creat Ratio 21.0 CALC 8.0-36.0 Calcium 9.4 mg/dL 8.6-10.2 GFR Non- >60 ml/min/1.73m^ >=60 GFR >60 ml/min/1.73m^ >=60 Laboratory test 11/01/2017 [facility](fma) Magnesium, Serum 2.0 mEq/L 1.2-2.1 finding Laboratory test 09/24/2017 [facility] C Reactive 1.01 mg/L N < 5.00 2 finding Protein Thyroxine 5.75 g/mL Low 6.09-12.23 3 TSH (Thyroid Stim Horm) 0.82 mcIU/mL N 0.34-5.60 4 CBC Auto Diff 09/24/2017 [facility] Blood Count 6.0 10^3/uL N 3.5-10.8 Red Blood Count 4.97 10^6/uL N 4.0-5.4 Hemoglobin 15.8 g/dL N 14.0-18.0 Hematocrit 46 % N 42-52 Mean Corpuscular Volume 92 fL N 80-94 Mean Corpuscular Hemoglobin 32 pg High 27-31 Mean Corpuscular HGB Conc 34 g/dL N 31-36 Red Cell Distribution Width 13 % N 10.5-15 Platelet Count 264 10^3/uL N 150-450 Mean Platelet Volume 9 um3 N 7.4-10.4 Abs Neutrophils 3.5 10^3/uL N 1.5-7.7 Abs Lymphocytes 1.7 10^3/uL N 1.0-4.8 Abs Monocytes 0.5 10^3/uL N 0-0.8 Abs Eosinophils 0.2 10^3/uL N 0-0.6 Abs Basophils 0.1 10^3/uL N 0-0.2 Abs Nucleated RBC 0 10^3/uL Granulocyte % 58.6 % N 38-83 Lymphocyte % 28.3 % N 25-47 Monocyte % 8.6 % High 0-7 Eosinophil % 3.5 % N 0-6 Basophil % 1.0 % N 0-2 Nucleated Red Blood Cells % 0.1 Laboratory test 07/09/2017 [facility]ma) PSA 0.9 ng/mL 0.0-4.0 finding Ua - Non Micro (Fma) 06/22/2017 [facility] Appearance clear (607)- - Color yellow Glucose, Urine (Fma/[facility]/CTX) neg Bilirubin neg Ketones neg SP Grav <=1.005 Blood neg PH 6.5 Protein neg Urobil 0.2 Nitrite neg Leukocytes (Fma/[facility]/Centrex) neg Comprehensive Metabolic 06/11/2017 Israel Gamez([facility]) Sodium 140 mEq/L 134-149 Prof Potassium 4.9 mEq/L 3.6-5.5 Chloride 105 mEq/L 94-112 Carbon Dioxide 28 mEq/L 21-32 Glucose 100 mg/dL 70-105 BUN 19 mg/dL 6-26 Creatinine 1.0 mg/dL 0.6-1.4 BUN/Creat Ratio 19.0 CALC 8.0-36.0 Calcium 9.4 mg/dL 8.6-10.2 Total Protein 6.9 g/dL 6.4-8.3 Albumin 4.6 g/dL 3.8-5.5 Globulin 2.3 g/dL 2.0-4.8 A/G Ratio 2.0 CALC 0.6-2.3 Alk. Phosphatase 49 U/L 22-95 Alt (SGPT) 22 U/L 7-35 Ast (Sgot) 18 U/L 5-34 Total Bilirubin 0.7 mg/dL 0.2-1.3 GFR Non- >60 ml/min/1.73m^ >=60 GFR >60 ml/min/1.73m^ >=60 Complete Blood Count 06/11/2017 Israel Gamez([facility]) WBC 6.6 x10^3/UL 3.6 -9.6 RBC 4.81 x10^6/UL 3.90-5.70 HGB 15.0 g/dL 12.1-17.2 HCT 45 % 36-50 MCV 94.0 fL 82.2-97.4 MCH 31.2 pg 27.6-33.3 MCHC 33.4 g/dL 33.0-35.5 RDW 14.3 % High 11.6-13.7 PLT 238 x10^3/UL 150-400 MPV 8.0 fL 7.4-10.4 Gran # 4.6 x10^3/UL 1.5-7.2 Lymph# 1.8 x10^3/UL 0.7-4.9 Sac# 0.2 x10^3/UL 0.1-0.9 Gran % 68.6 % 42.2-75.2 Lymph % 27.6 % 20.5-51.1 Sac% 3.8 % 1.7-9.3 Lipid Profile 06/11/2017 Israel Gamez([facility]) Cholesterol 255 mg/dL High 120-200 Triglycerides 121 mg/dL 30-200 HDL Cholesterol 41 mg/dL 30-70 LDL (Calculated) 190 CALC High 0-129 VLDL Cholesterol 24 mg/dL 0-50 HDL Risk Factor 6.2 CALC High 0.0-4.4 Laboratory test 2017 Israel Gamez([facility]) Magnesium, 2.2 mEq/L High 1.2-2.1 5 finding Serum Comprehensive 2017 Wood Fl[facility]) Sodium 139 mEq/L 134-149 Metabolic Prof Potassium 4.6 mEq/L 3.6-5.5 Chloride 104 mEq/L 94-112 Carbon Dioxide 25 mEq/L 21-32 Glucose 116 mg/dL High 70-105 6 BUN 18 mg/dL 6-26 Creatinine 1.2 mg/dL 0.6-1.4 BUN/Creat Ratio 15.0 CALC 8.0-36.0 Calcium 8.9 mg/dL 8.6-10.2 Total Protein 6.8 g/dL 6.4-8.3 Albumin 4.4 g/dL 3.8-5.5 Globulin 2.4 g/dL 2.0-4.8 A/G Ratio 1.8 CALC 0.6-2.3 Alk. Phosphatase 53 U/L 22-95 Alt (SGPT) 16 U/L 7-35 Ast (Sgot) 18 U/L 5-34 Total Bilirubin 0.8 mg/dL 0.2-1.3 GFR Non- >60 ml/min/1.73m^ >=60 GFR >60 ml/min/1.73m^ >=60 Complete Blood Count 2017 Israel Gamez([facility]) WBC 6.2 x10^3/UL 3.6 -9.6 RBC 4.81 x10^6/UL 3.90-5.70 HGB 15.3 g/dL 12.1-17.2 HCT 45 % 36-50 MCV 94.0 fL 82.2-97.4 MCH 31.8 pg 27.6-33.3 MCHC 33.8 g/dL 33.0-35.5 RDW 13.6 % 11.6-13.7 PLT 289 x10^3/UL 150-400 MPV 7.6 fL 7.4-10.4 Gran # 4.8 x10^3/UL 1.5-7.2 Lymph# 1.2 x10^3/UL 0.7-4.9 Sac# 0.2 x10^3/UL 0.1-0.9 Gran % 75.3 % High 42.2-75.2 Lymph % 21.0 % 20.5-51.1 Sac% 3.7 % 1.7-9.3 Urinalysis Profile 05/18/2017 [facility] [place] Color Yellow N Urine Appearance Clear N Urine Specific [place] 1.017 N 1.010-1.030 Urine pH 6.0 N 5-9 Urine Urobilinogen Negative N Negative Urine Ketones Negative N Negative Urine Protein Negative N Negative Urine Leukocytes Negative N Negative Urine Blood Negative N Negative * * Abnormal Negative 7 Urine Nitrite Negative N Negative Urine Bilirubin Negative N Negative Urine Glucose Negative N Negative Urinalysis Profile 05/16/[place] [facility] [place] Yellow N Urine Appearance Clear N Urine Specific [place] 1.014 N 1.010-1.030 Urine pH 7.0 N 5-9 Urine Urobilinogen Negative N Negative Urine Ketones Negative N Negative Urine Protein Negative N Negative Urine Leukocytes Negative N Negative Urine Blood Negative N Negative Urine Nitrite Negative N Negative Urine Bilirubin Negative N Negative Urine Glucose Negative N Negative CBC Auto Diff 05/16/2017 [facility] [place] Blood Count 5.3 10^3/uL N 3.5-10.8 Red Blood Count 4.78 10^6/uL N 4.0-5.4 Hemoglobin 15.0 g/dL N 14.0-18.0 Hematocrit 44 % N 42-52 Mean Corpuscular Volume 92 fL N 80-94 Mean Corpuscular Hemoglobin 31 pg N 27-31 Mean Corpuscular HGB Conc 34 g/dL N 31-36 Red Cell Distribution Width 13 % N 10.5-15 Platelet Count 229 10^3/uL N 150-450 Mean Platelet Volume 8 um3 N 7.4-10.4 Abs Neutrophils 3.5 10^3/uL N 1.5-7.7 Abs Lymphocytes 1.2 10^3/uL N 1.0-4.8 Abs Monocytes 0.5 10^3/uL N 0-0.8 Abs Eosinophils 0.1 10^3/uL N 0-0.6 Abs Basophils 0.1 10^3/uL N 0-0.2 Abs Nucleated RBC 0 10^3/uL N Granulocyte % 66.0 % N 38-83 Lymphocyte % 21.7 % Low 25-47 Monocyte % 8.6 % N 1-9 Eosinophil % 2.6 % N 0-6 Basophil % 1.1 % N 0-2 Nucleated Red Blood Cells % 0 N Comp Metabolic Panel 05/16/2017 [facility] Sodium 136 mmol/L N 133-145 Potassium 3.7 mmol/L N 3.5-5.0 Chloride 103 mmol/L N 101-111 Co2 Carbon Dioxide 28 mmol/L N 22-32 Anion Gap 5 mmol/L N 2-11 Glucose 103 mg/dL High 70-100 Blood Urea Nitrogen 14 mg/dL N 6-24 Creatinine 1.12 mg/dL N 0.67-1.17 BUN/Creatinine Ratio 12.5 N 8-20 Calcium 9.6 mg/dL N 8.6-10.3 Total Protein 7.2 g/dL N 6.4-8.9 Albumin 4.4 g/dL N 3.2-5.2 Globulin 2.8 g/dL N 2-4 Albumin/Globulin Ratio 1.6 N 1-3 Total Bilirubin 0.80 mg/dL N 0.2-1.0 Alkaline Phosphatase 48 U/L N 34-104 Alt 14 U/L N 7-52 Ast 17 U/L N 13-39 Egfr Non- 68.8 N >60 Egfr 88.5 N >60 8 Laboratory test 05/16/2017 [facility] Lipase 12 U/L N 11.0-82.0 finding Laboratory test 05/14/2017 [facility] C-Reactive 0.6 mg/L 0.0-4.[address] Protein, [place] [address] (302)- - Complete Blood 05/14/2017 [facility] Dem[facility](fma) WBC 4.9 3.6-9.6 Count x10^3/UL RBC 4.71 x10^6/UL 3.90-5.70 HGB 14.6 g/dL 12.1-17.2 HCT 44 % 36-50 MCV 94.0 fL 82.2-97.4 MCH 31.0 pg 27.6-33.3 MCHC 33.1 g/dL 33.0-35.5 RDW 13.7 % 11.6-13.7 PLT 247 x10^3/UL 150-400 MPV 7.9 fL 7.4-10.4 Gran # 3.0 x10^3/UL 1.5-7.2 Lymph# 1.7 x10^3/UL 0.7-4.9 Sac# 0.2 x10^3/UL 0.1-0.9 Gran % 59.6 % 42.2-75.2 Lymph % 35.4 % 20.5-51.1 Sac% 5.0 % 1.7-9.3 Comprehensive Metabolic 05/14/2017 [facility] Demond(a) Sodium 139 mEq/L 134-149 Prof Potassium 4.8 mEq/L 3.6-5.5 Chloride 103 mEq/L 94-112 Carbon Dioxide 26 mEq/L 21-32 Glucose 108 mg/dL High 70-105 10 BUN 23 mg/dL 6-26 Creatinine 1.0 mg/dL 0.6-1.4 BUN/Creat Ratio 23.0 CALC 8.0-36.0 Calcium 9.1 mg/dL 8.6-10.2 Total Protein 6.9 g/dL 6.4-8.3 Albumin 4.5 g/dL 3.8-5.5 Globulin 2.4 g/dL 2.0-4.8 A/G Ratio 1.9 CALC 0.6-2.3 Alk. Phosphatase 49 U/L 22-95 Alt (SGPT) 15 U/L 7-35 Ast (Sgot) 17 U/L 5-34 Total Bilirubin 0.4 mg/dL 0.2-1.3 GFR Non- >60 ml/min/1.73m^ >=60 GFR >60 ml/min/1.73m^ >=60 Ua - Micro (Fma) 05/14/2017 [facility] Appearance clear (607)- - Color yellow Glucose, Urine (Fma/CMC/CTX) neg Bilirubin neg Ketones neg SP Grav 1.015 Blood neg PH 7.5 Protein neg Urobil 0.2 Nitrite neg Leukocytes (Fma/CMC/Centrex) neg Hyaline - /Lpf Granular - /Lpf WBC (Fma,Centrex) - RBC - Mucus (Fma/CBC/Centrex) - /Lpf Epith - /Lpf Bacteria - /Hpf Amorphous (Fma/CMC/Centrex) - /Lpf Crystals, Fluid (Fma/CMC/CTX) - Z#Comments - Laboratory test 06/26/2016 [facility] [place] Interface SEE RESULT 11 finding Order BELOW Ua - Non Micro 05/12/2016 [facility] Appearance clear (a) (607)- - Color yellow Glucose, Urine (Fma/CMC/CTX) neg Bilirubin neg Ketones neg SP Grav 1.020 Blood neg PH 7.0 Protein neg Urobil 0.2 Nitrite neg Leukocytes (a/CMC/Centrex) neg Comprehensive Metabolic 05/04/2016 [facility] Demond(a) Sodium 140 mEq/L 134-149 Prof Potassium 4.9 mEq/L 3.6-5.5 Chloride 103 mEq/L 94-112 Carbon Dioxide 22 mEq/L 21-32 Glucose 92 mg/dL 70-105 BUN 18 mg/dL 6-26 Creatinine 1.1 mg/dL 0.6-1.4 BUN/Creat Ratio 16.4 CALC 8.0-36.0 Calcium 9.5 mg/dL 8.6-10.2 Total Protein 6.8 g/dL 6.4-8.3 Albumin 4.4 g/dL 3.8-5.5 Globulin 2.4 g/dL 2.0-4.8 A/G Ratio 1.8 CALC 0.6-2.3 Alk. Phosphatase 45 U/L 22-95 Alt (SGPT) 27 U/L 7-35 Ast (Sgot) 29 U/L 5-34 Total Bilirubin 0.5 mg/dL 0.2-1.3 GFR Non- >60 ml/min/1.73m^ >=60 GFR >60 ml/min/1.73m^ >=60 Lipid Profile 05/04/2016 [facility] Demond(a) Cholesterol 176 mg/dL 120- 200 Triglycerides 108 mg/dL 30-200 HDL Cholesterol 36 mg/dL 30-70 LDL (Calculated) 118 CALC 0-129 VLDL Cholesterol 22 mg/dL 0-50 HDL Risk Factor 4.9 CALC High 0.0-4.4 Complete Blood Count 05/04/2016 [facility] Demond(fma) WBC 4.5 x10^3/UL 3.6 -9.6 RBC 4.89 x10^6/UL 3.90-5.70 HGB 15.0 g/dL 12.1-17.2 HCT 45 % 36-50 MCV 93.0 fL 82.2-97.4 MCH 30.6 pg 27.6-33.3 MCHC 33.0 g/dL 33.0-35.5 RDW 13.5 % 11.6-13.7 PLT 253 x10^3/UL 150-400 MPV 7.9 fL 7.4-10.4 Gran # 2.9 x10^3/UL 1.5-7.2 Lymph# 1.5 x10^3/UL 0.7-4.9 Sac# 0.1 x10^3/UL 0.1-0.9 Gran % 62.4 % 42.2-75.2 Lymph % 34.2 % 20.5-51.1 Sac% 3.4 % 1.7-9.3 Laboratory test 05/04/2016 [facility](fma) PSA 0.9 ng/mL 0.0-4.0 12 finding Laboratory test 03/19/2015 [facility] [place] Culture And SEE RESULT 13 finding Sensitivities BELOW Ua - Micro (Fma) 03/19/2015 [facility] Appearance CLEAR (607)- - Color YELLOW Glucose, Urine (Fma/CMC/CTX) NEG Bilirubin NEG Ketones TRACE SP Grav 1.020 Blood TRACE-INTACT # PH 6.0 Protein NEG Urobil 0.2 Nitrite NEG Leukocytes (Fma/CMC/Centrex) NEG WBC (Fma,Centrex) 0-1 # RBC 10-12 # Laboratory test 03/19/2015 [facility](fma) PSA 0.9 ng/mL 0.0-4.0 finding Laboratory test 01/24/2014 [facility](fma) PSA 0.9 ng/mL 0.0-4.0 finding Laboratory test 12/16/2012 [facility](fma) PSA 0.90 ng/mL 0.00-4.00 14 finding Laboratory test 09/19/2012 [facility] Throat - Beta positive@24 ## finding (607)- - Strep Fma hrs Laboratory test 03/11/2012 [facility] Inr (Fma) 2.0 2.0-3.0 finding (607)- - Laboratory test 03/01/2012 [facility] Inr (Fma) 1.7 Low 2-3 finding (607)- - Laboratory test 02/22/2012 [facility] Inr (Fma) 1.5 Low 2.0-3.0 finding (607)- - Laboratory test 02/15/2012 [facility] Inr (Fma) 1.8 Low 2-3 finding (607)- - Laboratory test 02/08/2012 [facility] Inr (Fma) 1.5 Low 2.0-3.0 finding (607)- - Laboratory test 02/03/2012 [facility] Inr (Fma) 2.3 2.0-3.0 finding (607)- - Laboratory test 02/01/2012 [facility] Inr (Fma) 3.2 High 2-3 finding (607)- - Laboratory test 01/29/2012 [facility] Inr (Fma) 2.9 2.0-3.0 finding (607)- - Laboratory test 01/03/2012 [facility] Blood Culture 15 finding ----- <SEE NOTE> Laboratory test 01/03/2012 [facility] Lipase 34 U/L 22-51 finding Urinalysis 01/03/2012 [facility] Ua Color DERRICK Yellow W/Microscopic Appearance-Urine CLEAR Clear Specific [place]-Ur 1.019 1.010-1.030 Esterase-Urine 1+ Abnormal Negative Nitrite NEGATIVE Negative Cwtectyncufr-Kf-KOR NEGATIVE Negative Protein-Urine NEGATIVE Negative PH-Urine 7.0 5-9 Blood-Urine NEGATIVE Negative Ketones-Urine 1+ Abnormal Negative Bilirubin-Ur NEGATIVE Negative Glucose-Urine NEGATIVE Negative WBC-Urine 0-2 0-5 RBC-Urine 0-2 0-2 Epith Cells-Ur RARE None Bacteria-Urine NONE SEEN None Comp Metabolic Panel 01/03/2012 [facility] Sodium 135 mmol/L 135-145 Potassium 3.5 mmol/L 3.5-5.0 Chloride 101 mmol/L 101-111 Co2 (Carbon Dioxide) 28.0 mmol/L 22-32 Anion Gap 6.0 mmol/L 2-11 16 Glucose 103 mg/dL High 70-100 BUN 14 mg/dL 6-24 Creatinine 1.0 mg/dL 0.50-1.40 One Over Creatinine 1.00 BUN/Creatinine Ratio 14.0 8-20 Calcium 8.9 mg/dL 8.1-9.9 Total Protein 7.4 GM/DL 6.2-8.1 Albumin 3.8 GM/DL 3.6-5.4 Globulin 3.6 GM/DL 2-4 Albumin/Globulin Ratio 1.1 1-3 Bilirubin Total 0.9 mg/dL 0.4-1.5 17 Alkaline Phosphatase 57 U/L 39-117 Alt (SGPT) 41 U/L 17-63 Ast (Sgot) 47 U/L High 12-42 eGFR Non- 80.1 > 60 eGFR 103.0 > 60 18 CBC Auto Diff 01/03/2012 [facility] White Blood Count 14.0 CUMM High 4.8-10.8 Red Cell Count 4.47 CUMM Low 4.6-6.2 Hemoglobin 14.0 g/dL 14.0-18.0 Hematocrit 40 % Low 42-52 Mean Corpuscular Volume 90 um3 80-94 Mean Corpuscular Hemoglob 31 pg 27-31 Mean Corpuscular HGB Cone 35 g/dL 32-36 Redcell Distribution WDTH 13 % 10.5-15 Platelet Count 352 CUMM 150-450 Mean Platelet Volume 7.5 um3 7.4-10.4 Absolute Neutrophil Count 11.7 High 1.5-7.7 19 Manual Differential 01/03/2012 [facility] Polysegmented Neutrophil 83 % 38-83 Band Neutrophil 1 % 0-8 Lymphocyte 12 % Low 25-47 Monocyte 4 % 0-13 RBC Morphology NORMAL Protime 01/03/2012 [facility] Inr 1.17 High 0.88-1.13 20 Protime 14.0 SEC High 10.3-13.5 21 Urine Culture & 01/03/2012 [facility] M <SEE 22 Sensitivi NOTE> Laboratory test 01/03/2012 [facility] PTT (Aptt) 24.3 SEC Low 25.1-38.5 finding Stool For Blood 01/03/2012 [facility] Stool For NEGATIVE Negative Blood Laboratory test 12/29/2011 [facility] Blood Culture <SEE 23 finding NOTE> Urinalysis 12/29/2011 [facility] Ua Color YELLOWA Yellow W/Microscopic Appearance-Urine CLEAR Clear Specific [place]-Ur 1.050 High 1.010-1.030 24 Esterase-Urine NEGATIVE Negative Nitrite NEGATIVE Negative Utycyqovwrxj-Yr-WYG NEGATIVE Negative Protein-Urine TRACE Abnormal Negative PH-Urine 7.0 5-9 Blood-Urine 2+ Abnormal Negative Ketones-Urine 1+ Abnormal Negative Bilirubin-Ur NEGATIVE Negative Glucose-Urine NEGATIVE Negative WBC-Urine 0-2 0-5 RBC-Urine 5-10 Abnormal 0-2 Epith Cells-Ur RARE None Bacteria-Urine TRACE None Amorphous Sed-U TRACE None Ua - Micro ([facility]) 12/29/2011 [facility] Appearance CLEAR (607)- - Color YELLOW Glucose, Urine (Fma/CMC/CTX) NEG Bilirubin NEG Ketones TRACE # SP Grav 1.020 Blood MODERATE # PH 7.0 Protein SSA TRACE # Urobil 1.0 Nitrite NEG Leukocytes (Fma/CMC/Centrex) NEG Hyaline - /Lpf Granular - /Lpf WBC (Fma,Centrex) 1-2 # RBC 10-12 # Mucus (Fma/CBC/Centrex) SMALLAMT /Lpf # Epith - /Lpf Bacteria RARE /Hpf # Amorphous (Fma/CMC/Centrex) - /Lpf Crystals, Fluid (Fma/CMC/CTX) - Z#Comments - CBC Manual Diff-[facility] 12/29/2011 [facility] WBC 21.0 High 3.6-9.6 25 (607)- - RBC 5.17 3.90-5.70 Hemoglobin (Fma/CMC/CTX) 16.2 g/dL 12.1 - 17.2 Hematocrit (Fma/CMC/CTX) 47.2 % 36.1 - 50.3 Mean Corpuscular Vol 91.3 82.2-97.4 Mean Corpuscular Hemoglobin 31.3 27.6-33.3 Mean Corpuscular Hemo Concen 34.3 32.0-36.0 Platelets 233 10^3/ul 150-400 RDW 13.6 11.6-13.7 Mean Platelet Volume 10.8 6.5-11.0 Neutrophil 76 Band 11 Lymphocytes 8 Monocyte 5 Comment rbc/plts normal Comprehensive Metabolic 12/29/2011 [facility](fma) Albumin 4.7 g/dL 3.8-5.5 Prof Alk. Phos. 75 U/L 22-95 Alt (SGPT) 17 U/L 10-40 Ast (Sgot) 20 U/L 5-34 BUN 22 mg/dL 6-26 Calcium 10.0 mg/dL 8.6-10.2 Chloride 95 mEq/L 94-112 Creatinine 1.2 mg/dL 0.6-1.4 Carbon Dioxide 27 mEq/L 21-32 Glucose 130 mg/dL High 70-105 Sodium 134 mEq/L 134-149 Total Bilirubin 0.8 mg/dL 0.2-1.3 Total Protein 7.7 g/dL 6.3-8.1 Potassium 4.5 mEq/L 3.6-5.5 Globulin 2.9 g/dL 2.0-4.8 A/G Ratio 1.6 Calc 0.6-2.2 BUN/Creat Ratio 17.8 Calc 8.0-36.0 Comprehensive Metabolic 12/08/2011 [facility] Demond([facility]) Albumin 4.6 g/dL 3.8-5.5 Prof Alk. Phos. 65 U/L 22-95 Alt (SGPT) 17 U/L 10-40 Ast (Sgot) 20 U/L 5-34 BUN 24 mg/dL 6-26 Calcium 9.6 mg/dL 8.6-10.2 Chloride 100 mEq/L 94-112 Creatinine 1.1 mg/dL 0.6-1.4 Carbon Dioxide 26 mEq/L 21-32 Glucose 96 mg/dL 70-105 Sodium 138 mEq/L 134-149 Total Bilirubin 0.2 mg/dL 0.2-1.3 Total Protein 7.0 g/dL 6.3-8.1 Potassium 4.8 mEq/L 3.6-5.5 Globulin 2.4 g/dL 2.0-4.8 A/G Ratio 1.9 Calc 0.6-2.2 BUN/Creat Ratio 21.5 Calc 8.0-36.0 Laboratory test 12/08/2011 [facility] Demond([facility]) PSA 1.10 ng/mL 0.00-4.00 finding Ua - Non Micro 12/08/2011 [facility] Appearance clear (a) (607)- - Color yellow Glucose neg Bilirubin neg Ketones neg SP Grav 1.020 Blood neg PH 8.5 Protein neg Urobil 0.2 Nitrite neg Leukocytes ([facility]ma/[facility]) neg Lipid Profile 01/29/2011 [facility] Demond([facility]) Cholesterol 226 mg/dL High 120-200 HDL 38 mg/dL 30-70 Triglycerides 189 mg/dL 30-200 HDL Risk Factor 6.0 CALC High 0.0-4.0 LDL (Calculated) 151 CALC High 0-129 VLDL (Calculated) 38 mg/dL 0-50 Laboratory test 01/29/2011 Israel Demond([facility]) PSA 0.80 ng/mL 0.00-4.00 finding Comprehensive 09/15/2008 Wood Demond([facility]) Albumin 4.6 g/dL 3.8-5.5 26 Metabolic Prof Alk. Phos. 65 U/L 22-95 Alt (SGPT) 24 U/L 10-40 Ast (Sgot) 33 U/L 5-34 BUN 25 mg/dL 6-26 Calcium 10.0 mg/dL 8.6-10.2 Chloride 101 mEq/L 94-112 Creatinine 1.1 mg/dL 0.6-1.4 Carbon Dioxide 28 mEq/L 21-32 Glucose 101 mg/dL 70-105 Sodium 141 mEq/L 134-149 Total Bilirubin 0.5 mg/dL 0.2-1.3 Total Protein 7.5 g/dL 6.3-8.1 Potassium 4.6 mEq/L 3.6-5.5 Globulin 2.9 g/dL 2.0-4.8 A/G Ratio 1.6 Calc 0.6-2.2 BUN/Creat Ratio 22.0 Calc 8.0-36.0 Lipid Profile 09/15/2008 Israel Demond([facility]) Cholesterol 257 mg/dL High 120-200 HDL 32 mg/dL 30-70 Triglycerides 218 mg/dL High 30-200 HDL Risk Factor 8.0 CALC High 4.2-7.0 LDL (Calculated) 181 CALC High 0-129 VLDL (Calculated) 44 mg/dL 0-50 Ua - Non Micro (a) 08/30/2008 [facility] Appearance CLEAR (607)- - Color YELLOW Glucose, Urine (Fma/CMC/CTX) NEG Bilirubin NEG Ketones NEG SP Grav 1.025 Blood NEG PH 6.5 Protein NEG Urobil 0.2 Nitrite NEG Leukocytes ([facility]) NEG Laboratory test 11/03/2007 [facility] PSA Screening 0.91 NG/ML 0-4 27 finding Comp Metabolic 10/10/2003 [facility] Glucose, Serum 92 mg/dL 70- 118 ([facility]) (607)- - (Fma/CMC/CTX) BUN (a/CMC/Centrex) 27 mg/dL High 6-26 28 Creatinine (a/CMC/CTX) 1.0 mg/dL 0.6-1.4 BUN/Creatinin Ratio 28.3 8.0-36 Sodium 140 134-149 Potassium 4.9 3.6-5.5 Chloride 100 mEq/L 94-112 Co2 25 21-32 Calcium (a/CMC/Centrex) 9.7 mg/dL 8.6-10.0 Total Protein 7.6 g/dL 6.3-8.1 Albumin (a/CMC/Centrex) 5.0 3.8-5.5 Globulin 2.6 2.0-4.8 A/G Ratio (a/[facility]) 1.9 0.6-2.2 Alkaline Phosphatase (F/C/CTX) 70 U/L 22-95 Alt (SGPT) (a/CMC/Centrex) 16 10-40 Ast (Sgot) (a/CMC/Centrex) 25 U/mL 5-34 Bilirubin, Total 0.6 mg/dL 0.2-1.3 Lipid Profile 10/10/2003 [facility] Cholesterol 234 mg/dL High 120- 200 ([facility]) (607)- - (a/CMC/[facility]rex) Triglyceride 316 mg/dL High 30-200 HDL-Chol 26 Low 30-70 29 LDL, Calculated ([facility]) -- CALC 0-129 VLDL 63 High 0-50 HDL Risk Factor ([facility]) 8.9 CALC High 4.2-7.0 Laboratory test 10/10/2003 [facility] LDL, Direct 148 mg/dL High 0- 130 finding (607)- - (a/[facility]) Free T4/TSH 10/10/2003 [facility] TSH 1.58 uIU/ml 0.5-6.0 (a/CMC/[facility]rex) (607)- - (a/[facility] ) Free T4 (a/CMC/Centrex) 1.12 ng/dL 0.75-1.54 CBC Electronic (Fma) 10/10/2003 [facility] WBC 6.2 3.6-9.6 (607)- - Lymphocytes 41.2 % 20.5 - 51.1 Monocytes 5.6 % 1.7-9.3 Granulocytes 53.2 % 42.2 - 75.2 Lymphocytes 2.6 10^3/uL 0.7 - 4.9 Monocytes 0.3 10^3/uL 0.1 - 0.9 Granulocytes 3.3 10^3/uL 1.5 - 7.2 RBC 4.95 3.90-5.70 Hemoglobin (Fma/CMC/CTX) 15.2 g/dL 12.1 - 17.2 Hematocrit (Fma/CMC/CTX) 45.3 % 36.1 - 50.3 Mean Corpuscular Vol 91.6 82.2-97.4 Mean Corpuscular Hemaglobin 30.8 27.6-33.3 Mean Corpuscular Hemo Concen 33.6 33.0-35.5 RDW 12.3 11.6-13.7 Platelets 246 10^3/ul 150-400 Mean Platelet Volume 8.8 7.4-10.4 1 1 sst 2 Acute inflammation: >10.00 3 Copy Result to: ROOPA SNIDER ([id number]) 4 Copy Result to: ROOPA SNIDER ([id number]) 5 RESULTS VERIFIED BY REPEAT ANALYSIS 6 RESULTS VERIFIED BY REPEAT ANALYSIS 7 *Ascorbic acid is present which may interfere with detection of blood. 8 Because ethnic data is not always readily available, this report includes an eGFR for both -Americans and non- Americans. The National Kidney Disease Education Program (NKDEP) does not endorse the use of the MDRD equation for patients that are not between the ages of 18 and 70, are , have extremes of body size, muscle mass, or nutritional status, or are non- or non-. According to the National Kidney Foundation, irrespective of diagnosis, the stage of the disease is based on the level of kidney function: Stage Description GFR(mL/min/1.73 m(2)) 1 Kidney damage with normal or decreased GFR 90 2 Kidney damage with mild decrease in GFR 60-89 3 Moderate decrease in GFR 30-59 4 Severe decrease in GFR 15-29 5 Kidney failure <15 (or dialysis) 9 1sst 10 NON-FASTING 11 SEE RESULT BELOW Name: MADONNA YATES : [address]: Channing Delaney MD Acct: [id number] Unit: [id number] AGE: 51 Location: ENDO Re06/26/16 SEX: M Status: DEP REF SPEC: [id number] MATI: 06/26/16- SUBM DR: Channing Delaney MD REQ: [id number] RECD: 06/26/168637 STATUS: HUMERA ROBERTSON DR: Roopa Snider MD _ ORDERED: LEVEL IV FINAL DIAGNOSIS Colon, rectum, biopsy: -- Tubular adenoma. -- No high grade dysplasia or malignancy. CLINICAL HISTORY Abdominal pain, history of diverticulitis - sigmoid colon resection POST-OPERATIVE DIAGNOSIS Colonoscopy into terminal ileum, prep good - sigmoid anastomosis widely patent, small rectal polyp removed. Conclusions/Plan: Small polyp removed GROSS DESCRIPTION The specimen is received in formalin labeled, Biopsy Rectal Polyp, and consists of a 0.3 x 0.2 x 0.2 cm burt-pink polypoid soft tissue fragment, which is inked and submitted entirely in one cassette. Signed (signature on file) Mohamud Shepard MD [id number] END OF REPORT * ML=Testing performed at Main Lab DEPARTMENT OF PATHOLOGY, [address] [place] [address] Mohamud Shepard M.D. Director [facility] # [id number] SEE RESULT BELOW Name: MADONNA YATES : [address]: Brandy Casillas NP Acct: [id number] Unit: [id number] AGE: 49 Location: [facility] Re03/19/15 SEX: M Status: REG REF SPEC: [id number] MATI: 03/19/15-1712 SUBM : Brandy Casillas NP REQ: [id number] RECD: 03/19/15 STATUS: COMP _ SOURCE: URINE SPDESC: ORDERED: Urine Culture Procedure Result Verified Site Urine Culture Final 03/21/15- 1146 ML Organism 1 NORMAL DEMOND [place] Count 10-25,000 (Moderate) CFU/ML * ML - MAIN LAB (PSC1) . END OF REPORT * ML=Testing performed at Main Lab DEPARTMENT OF PATHOLOGY, [address] [place] [address] Mohamud Shepard M.D. Director [facility] # [id number] RUN DATE: 01/08/12 [facility] NMI LIVE PAGE 1 RUN TIME: 610 Specimen Inquiry RUN USER: INTERFACE Name: MADONNA YATES Status: DIS IN Re01/03/12 Age/Sex: 46/M Unit#: [id number] Location: [facility] : 63 SPEC #: [id number] MATI: 01/03/12 STATUS: SHAILA REQ #: [id number] RECD: 01/03/12-[address]: Misael Parrish MD SOURCE: BLOOD ENTR: 01/03/[address]: Leit RHOADES,Roopa Osborne SPDESC: BLOOD,VENO ORDERED: BLOOD CULTURE ACT WKST: 01/04/12 #1 Procedure Result Verified Site > AEROBIC CULTURE BOTTLE Final 01/08/12- 06 ML NO GROWTH AFTER 5 DAYS > ANAEROBIC CULTURE BOTTLE Final 01/08/12- 06 ML NO GROWTH AFTER 5 DAYS ML - [facility] State Permit #[id number] [address] [place] [address] DEPARTMENT OF PATHOLOGY, [address] [place] [address] [facility] Permit #[id number] Mohamud Shepard M.D. Director Keith Wooten M.D. Batcher Operator 16 Anion gap measurement may be of limited value in the presence of any alkalosis, especially in a combined acid base disorder. . 17 A metabolite of Naproxen, O-desmethylnaproxen, has been shown to interfere with the [place] method for measuring total bilirubin. Samples from patients who have taken Naproxen have shown spurious elevation in total bilirubin levels. 18 Because ethnic data is not always readily available, this report includes an eGFR for both -Americans and non- Americans. The National Kidney Disease Education Program (NKDEP) does not endorse the use of the MDRD equation for patients that are not between the ages of 18 and 70, are , have extremes of body size, muscle mass, or nutritional status, or are non- or non-. According to the National Kidney Foundation, irrespective of diagnosis, the stage of the disease is based on the level of kidney function: Stage Description GFR(mL/min/1.73 m(2)) 1 Kidney damage with normal or decreased GFR 90 2 Kidney damage with mild decrease in GFR 60-89 3 Moderate decrease in GFR 30-59 4 Severe decrease in GFR 15-29 5 Kidney failure <15 (or dialysis) 19 Neutrophilia % Lymphopenia % 20 Recommended INR for Patients on Oral Anticoagulants Prophylaxis 2.0 - 3.0 Treatment of thrombosis 2.0 - 3.0 Prevention of embolism 2.0 - 3.0 Prevention of embolism from prosthetic heart valves 2.5 - 3.5 21 DIAGNOSIS,TREATMENT,AND THERAPY MUST BE BASED ON THE INR VALUE ALONE. 22 RUN DATE: 01/05/12 [facility] NMI LIVE PAGE 1 RUN TIME: 1126 Specimen Inquiry RUN USER: INTERFACE Name: MADONNA YATES Accalex#: [id number] Status: DIS IN Re01/03/12 Age/Sex: 46/M Unit#: [id number] Location: [facility] : 63 SPEC #: [id number] MATI: 01/03/12 STATUS: COMP REQ #: [id number] RECD: 01/03/[address] [facility] [address]: Misael Parrish MD SOURCE: URINE ENTR: 01/03/[address]: Leti RHOADES,Roopa Osborne [facility]: ORDERED: URINE C S ACT WKST: UR 01/05/12 #1 Procedure Result Verified Site > URINE CULTURE SENSITIVI Final 01/05/12- 1126 ML FINAL: NO GROWTH DAY 2 (<1,000 CFU/mL) [facility] Permit #[id number] [address] [place] [address] DEPARTMENT OF PATHOLOGY, [address] [place] [address] [facility] Permit #[id number] Holli Leija M.D. Batcher Operator 23 RUN DATE: 01/04/12 [facility] NMI LIVE PAGE 1 RUN TIME: 0021 Specimen Inquiry RUN USER: INTERFACE Name: MADONNA YATES Status: DIS IN Re12/29/11 Age/Sex: 46/M Unit#: [id number] Location: : 63 SPEC #: [id number] MATI: 12/29/11 STATUS: COMP REQ #: [id number] RECD: 12/30/[address] [facility] [address]: Ramon RHOADES,Bandar Lofton SOURCE: BLOOD ENTR: 12/30/11 [facility] DR: Leti RHOADES,Roopa Osobrne SPDESC: BLOOD,VENO ORDERED: BLOOD CULTURE ACT WKST: 12/30/11 #1 Procedure Result Verified Site > AEROBIC CULTURE BOTTLE Final 01/04/12- 20 ML NO GROWTH AFTER 5 DAYS > ANAEROBIC CULTURE BOTTLE Final 01/04/12- 0021 ML NO GROWTH AFTER 5 DAYS ML - [facility] State Permit #[id number] [facility] [employer] [place] [address] DEPARTMENT OF PATHOLOGY, [facility] [employer] [place] [address] [facility] Permit #[id number] Mohamud Shepard M.D. Director Keith Wooten M.D. Batcher Operator 24 REFRACTOMETER RESULT 1.048 CONFIRMED BY ROSHNI at 2010 on 12/29/11. 25 results alexandru'd and provider aware 26 FASTING 27 * SERUM LEVELS OF PSA MEASURED USING THE KRYS ALICE ACCESS HYBRITECH IMMUNOASSAY SHOULD NOT BE INTERPRETED ABSOLUTE EVIDENCE OF THE PRESENCE OR ABSENCE OF DISEASE. THE PSA VALUE SHOULD BE USED IN CONJUNCTION WITH OTHER PERTINENT CLINICAL DIAGNOSTIC PROCEDURES. 28 RESULT VERIFIED BY REPEAT ANALYSIS 29 RESULT VERIFIED BY REPEAT ANALYSIS Procedures Date Code Description Status 08/27/2017 [id number] Colonoscopy Completed 06/26/2015 13009 Remove Impacted Cerumen Completed 11/16/2012 [id number] Colonoscopy Completed 03/11/2012 50651 Finger Or Heel Stick Completed 03/01/2012 79301 Finger Or Heel Stick Completed 02/22/2012 48434 Finger Or Heel Stick Completed 02/15/2012 52281 Finger Or Heel Stick Completed 02/08/2012 44640 Finger Or Heel Stick Completed 02/03/2012 40969 Finger Or Heel Stick Completed 02/01/2012 73597 Finger Or Heel Stick Completed 01/29/2012 74421 Finger Or Heel Stick Completed 03/08/2006 82381 Destruction-1 Beign Lesion Completed Encounters Type Date Location Provider Dx Diagnosis Office Visit 06/11/2018 [facility] Brandy Casillas, R10.11 Right upper 10:30a 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 syndrome with constipation Office Visit 10/04/2017 10:10a Main Office Roopa Snider, K58.1 Irritable bowel M.D. 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 quadrant pain K21.9 Gastro-esophageal reflux disease without esophagitis R11.0 Nausea Office Visit 05/14/2017 8:40a Main Office Roopa Snider, R10.31 Right lower M.D. quadrant pain K21.9 Gastro-esophageal reflux disease without esophagitis N40.0 Benign prostatic hyperplasia without lower urinry tract symp Office Visit 04/13/2017 2:40p [facility] Mulugeta Cowan R10.31 Right lower Holli Ha quadrant pain M54.6 Pain in thoracic spine Office Visit 10/04/2015 Main Office Roopa Snider, K21.9 Gastro- esophageal 2:10p M.DJohn reflux disease without esophagitis Office Visit 07/15/2015 Main Office Mulugeta Cowan K64.0 First degree 10:10a Holli Ha hemorrhoids Office Visit 06/26/2015 Main Office Sobeida H61.23 Impacted cerumen, 3:00p Hilsdorf, bilateral Afnp-C Office Visit 03/19/2015 Main Office Brandy 600.00 hypertrophy benign of 3:45p Sonja, SOC[employer] WORK SUPERVISOR prostate without urinary obstruction 788.1 Dysuria 724.5 Backache Unspec Office Visit 11/21/2014 1:45p Main Office Rayna Anderson, 847.0 Sprains & Strains [employer] WORK SUPER[employer]OR Neck Office Visit 01/24/2014 11:15a Main Office Sobeida 564.00 Constipation Hilsdorf, Afnp-C Unspecified V16.42 Family History Malignant Neoplasm Prostate 600.00 hypertrophy benign of prostate without urinary obstruction Office Visit 07/31/2013 8:20a Main Office Roopa Osborne 715.14 Osteoarthrosis Midura, M.D. Localized Prim Hand 727.1 Bunion Office Visit 06/16/2013 1:10p [facility] Blaise Taylor, 455.6 Hemorrhoids Unspec M.D. W/O Complication Office Visit 05/01/2013 2:10p Main Office Roopa Osborne 789.07 Pain Abdominal Midura, M.D. Generalized Office Visit 12/16/2012 8:20a Main Office Roopa Osborne 600.00 hypertrophy benign Midura, M.D. of prostate without urinary obstruction Office Visit 11/10/2012 1:10p [facility] Roopa Osborne 564.00 Constipation Midura, M.D. Unspecified Office Visit 09/19/2012 8:20a Main Office Roopa Osbonre 462 Pharyngitis Acute Midura, M.D. Office Visit 09/16/2012 11:40a Main Office Roopa Osborne 789.07 Pain Abdominal Leti, MJohnDJohn Generalized Office Visit 02/02/2012 1:00p Main Office Roopa Osborne 562.11 Diverticulitis Colon Midura, M.D. 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 W/O Hemorrhage 455.6 Hemorrhoids Unspec W/O Complication Office Visit 12/29/2011 12:20p Main Office Roopa Snider, 789.03 Pain Abdominal M.D. Right Lower Quadrant 288.60 Leukocytosis, Unspecified Office Visit 12/08/2011 3:20p Main Office Roopa Snider, V70.0 Examination General M.D. Medical Routine AT Health Care Facility 272.4 Hyperlipidemia Other Unspec 600.00 hypertrophy benign of prostate without urinary obstruction 726.19 Shoulder Disorders Other Spec Office Visit 12/01/2011 1:10p Main Office Roopa Osborne 009.1 Colitis Enteritis & Holli Snider Gastroenteritis Presumed Infectious Orig Office Visit 09/14/2011 2:10p Main Office Roopa Osborne 723.1 Cervicalgia Holli Snider Office Visit 01/29/2011 1:50p [facility] Roopa Osborne 272.4 Hyperlipidemia Other Office Holli Snider Unspec 600.00 hypertrophy benign of prostate without urinary obstruction Office Visit 08/21/2010 3:00p [facility] Roopa Osborne 355.6 Mortons Neuromkamran Snider M.D. Office Visit 10/09/2009 4:00p Main Office Marlys Lofton 696.3 Pityriasis Rob Devries M.D. Office Visit 08/30/2008 10:20a [facility] Roopa Osborne 272.4 Hyperlipidemia Other Holli Snider Unspec V70.0 Examination General Medical Routine AT Health Care Facility Office Visit 11/21/2007 8:20p Main Office Roopa Osborne 455.6 Hemorrhoids Unspec Ana SniderD. 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 Office Visit 07/15/2004 3:30p [facility] Sobeida 724.2 Lumbago DominiqueregansabinaMaria Dolores-C Office Visit 07/02/2004 7:30p Main Office Sobeida V70.3 Examination Other [facility] Afnp-C Administrative Purpose 724.2 Lumbago Office Visit 10/10/2003 Main Office Sobeida 272.0 Hypercholesterolemia Pure 6:30p Maria Dolores Verduzco-Lucy 780.79 Malaise And Fatigue Other 214.9 Lipoma Unspecified Site V18.5 History Family Digestive Disorders Spec Other V77.91 Screening For Lipoid Disorders Plan of Treatment 12/30/2018 - Maria Dolores Diallo-CR10.31 Right lower quadrant painFollow up: Followup:. (Follow up)AllComments:Medication Management Patient Understands medications he's taking? Yes No Are there Barriersto Adherence? Yes No Has the patient been asked about herbal supplements and therapies, and OTC meds? Yes No Care Plan1. Patient has been queried about patient's goals/preferences and functional/lifestyle goals at relevant visits. If relevant, describe: na2. Treatment goals asexplained to the patient: abovefurther eval 3. Are there barriers to meeting treatment goals? Yes No If Yes, please describe:4. Self-Management goals as described to the patient: Yes No \\you can try to add some fiber slowly -- like 1/2 tsp citacil daily , increasing by 1/2 tsp per week until sx improvement or reach rec dosewe ccan check some labs and f/u pending test results
[2019-01-28] MEDS ORDERED: NS 0.9% 1000 ML** 2,000 ML IV ONE (19:12)
[2019-01-28] MEDS ORDERED: Ondansetron INJ* 2 MG/ML VIAL IV ONE ×2 (19:12→22:27)
[2019-01-28 19:29] LABS: ABS Basophils 0.1 10^3/ul (0-0.2); ABS Eosinophils 0.1 10^3/ul (0-0.6); ABS Lymphocytes 1.4 10^3/ul (1.0-4.8); ABS Monocytes 0.5 10^3/ul (0-0.8); ABS Neutrophils 3.6 10^3/ul (1.5-7.7); Hematocrit 46 % (42-52); Hemoglobin 15.7 g/dL (14.0-18.0); Lymphocyte % 24.6 %; Mean Corpuscular HGB Conc 34 g/dL (31-36); Mean Corpuscular Hemoglobin 32 pg (27-31); Mean Corpuscular Volume 93 fL (80-94); Nucleated Red Blood Cells % 0.1; Platelet Count 238 10^3/uL (150-450); Red Blood Count 4.89 10^6 /uL (4.18-5.48); Red Cell Distribution Width 13 % (10-15); White Blood Count 5.6 10^3/uL (3.5-10.8)
[2019-01-28 19:46] LABS: ALT 19 U/L (7-52); AST 25 U/L (13-39); Albumin 4.5 g/dL (3.2-5.2); Albumin/Globulin Ratio 1.6 (1-3); Alkaline Phosphatase 56 U/L (34-104); Anion Gap 5 mmol/L (2-11); Blood Urea Nitrogen 19 mg/dL (6-24); C Reactive Protein < 1.00 mg/L (<8.01); CO2 Carbon Dioxide 30 mmol/L (22-32); Calcium 9.6 mg/dL (8.6-10.3); Chloride 104 mmol/L (101-111); EGFR African American 82.7 (>60); EGFR Non-African American 68.3 (>60); Globulin 2.8 g/dL (2-4); Glucose 99 mg/dL (70-100); Potassium 4.1 mmol/L (3.5-5.0); Sodium 139 mmol/L (135-145); Total Protein 7.3 g/dL (6.4-8.9)
[2019-01-28 19:50] LABS: Urine Appearance Clear; Urine Bilirubin Negative (Negative); Urine Blood Negative (Negative); Urine Color Straw; Urine Glucose Negative (Negative); Urine Ketones Negative (Negative); Urine Nitrite Negative (Negative); Urine Protein Negative (Negative); Urine Specific Gravity 1.008 (1.010-1.030); Urine Urobilinogen Negative (Negative)
[2019-01-28] MEDS ORDERED: Ketorolac INJ* 30 MG/ML 1 ML VIAL IV PUSH ONE (20:22)
[2019-01-28] MEDS ORDERED: Iohexol 300* (CONTRAST) 10 ML SDV IV ONE (21:12)
--- NOTE | 2019-01-28 21:14 | ED ---
GI/ HPI - HPI Summary HPI Summary: 53-year-old male presents with abdominal pain for the past couple days. He has history of IBS and constipation at baseline. He takes medications for his IBS that causes Diarrhea. He states has his baseline diarrhea. no blood or mucous in stool. He states has been having increasing on the right side. Also to feeling feverish and having nausea and vomiting. He has history of diverticulitis and had his colon resected. denies any chest pressures or shortness of breath. No urinary symptoms. - History of Current Complaint Chief Complaint: EDAbdPain Time Seen by Provider: 01/28/19 19:01 Stated Complaint: ABD PAIN/FEVER NAUSEA PER PT Pain Intensity: 5 - Allergy/Home Medications Allergies/Adverse Reactions: Allergies Allergy/AdvReac Type Severity Reaction Status Date / Time morphine Allergy Vomiting Verified 01/28/19 19:26 Penicillins Allergy Hives Verified 01/28/19 19:26 Home Medications: Home Medications Cranberry Concentrate Softgel 2 cap PO DAILY 01/28/19 [History Confirmed ] Dicyclomine CAP* 30 mg PO TID 01/28/19 [History Confirmed 01/28/19] Linzess 221 mcg PO DAILY 01/28/19 [History Confirmed 01/28/19] Magnesium Citrate 1 gm PO DAILY 01/28/19 [History Confirmed 01/28/19] Multivitamin 1 tab PO DAILY 01/28/19 [History Confirmed 01/28/19] PMH/Surg Hx/FS Hx/Imm Hx Endocrine/Hematology History: Denies: Hx Diabetes Cardiovascular History: Denies: Hx Hypertension, Hx Pacemaker/ICD GI History: Reports: Hx Gastroesophageal Reflux Disease, Hx Hiatal Hernia, Other GI Disorders - hx diverticulitis with colon resection 2011 History: Reports: Other Problems/Disorders - BPH, TAKES RX Denies: Hx Renal Disease Musculoskeletal History: Reports: Other Musculoskeletal History - meniscal tear right knee Sensory History: Reports: Hx Contacts or Glasses - GLASSES Denies: Hx Hearing Aid Opthamlomology History: Reports: Hx Contacts or Glasses - GLASSES Psychiatric History: Denies: Hx Panic Disorder - Surgical History Surgery Procedure, Year, and Place: bowel resection r/t diverticulitis 2011, [facility] Hx Anesthesia Reactions: No - Immunization History Date of Tetanus Vaccine: unk Date of Influenza Vaccine: 2016 Infectious Disease History: No Infectious Disease History: Denies: Hx Hepatitis, Traveled Outside the [place] in Last 30 Days - Family History Known Family History: Positive: Hypertension, Other - arthritis. Father - colon CA. Brother - prostate CA, skin CA. - Social History Alcohol Use: Weekly Alcohol Amount: 4 DRINKS/WEEK Hx Substance Use: No Substance Use Type: Reports: None Hx Tobacco Use: Yes Smoking Status (MU): Never Smoked Tobacco Type: Cigarettes Amount Used/How Often: SOCIAL SMOKER, 2 CIGARETTES/DAY FOR 2 YRS Length of Time of Smoking/Using Tobacco: 2 YRS Have You Smoked in the Last Year: No Review of Systems Negative: Fever Negative: Chest Pain Negative: Shortness Of Breath Positive: Abdominal Pain, Diarrhea. Negative: Vomiting, Nausea All Other Systems Reviewed And Are Negative: Yes Physical Exam Triage Information Reviewed: Yes Vital Signs On Initial Exam: Initial Vitals Temp Pulse Resp BP Pulse Ox 98.7 F 81 16 145/97 97 01/28/19 18:16 01/28/19 18:16 01/28/19 18:16 01/28/19 18:16 01/28/19 18:16 Vital Signs Reviewed: Yes Appearance: Positive: Well-Appearing Skin: Positive: Warm, Dry Head/Face: Positive: Normal Head/Face Inspection Eyes: Positive: Normal, Conjunctiva Clear ENT: Positive: Pharynx normal Respiratory/Lung Sounds: Positive: Clear to Auscultation, Breath Sounds Present Cardiovascular: Positive: Normal, RRR Abdomen Description: Positive: Soft, Other: - tenderness in RLQ Bowel Sounds: Positive: Present Musculoskeletal: Positive: Normal Neurological: Positive: Normal Psychiatric: Positive: Normal Diagnostics - Vital Signs Vital Signs Temp Pulse Resp BP Pulse Ox 01/28/19 20:42 60 140/92 97 01/28/19 20:11 62 139/91 97 01/28/19 20:00 64 97 01/28/19 19:43 61 127/89 98 01/28/19 19:42 64 96 01/28/19 18:16 98.7 F 81 16 145/97 97 - Laboratory Lab Results: Lab Results 01/28/19 01/28/19 01/28/19 Range/Units 19:22 19:22 19:22 WBC 5.6 (3.5-10.8) 10^3/uL RBC 4.89 (4.18-5.48) 10^6 /uL Hgb 15.7 (14.0-18.0) g/dL Hct 46 (42-52) % MCV 93 (80-94) fL MCH 32 H (27-31) pg MCHC 34 (31-36) g/dL RDW 13 (10-15) % Plt Count 238 (150-450) 10^3/uL MPV 8.0 (7.4-10.4) fL Neut % (Auto) 63.8 % Lymph % (Auto) 24.6 % Hale % (Auto) 8.6 % Eos % (Auto) 2.0 % Baso % (Auto) 1.0 % Absolute Neuts (auto) 3.6 (1.5-7.7) 10^3/ul Absolute Lymphs (auto) 1.4 (1.0-4.8) 10^3/ul Absolute Monos (auto) 0.5 (0-0.8) 10^3/ul Absolute Eos (auto) 0.1 (0-0.6) 10^3/ul Absolute Basos (auto) 0.1 (0-0.2) 10^3/ul Absolute Nucleated RBC 0.0 10^3/ul Nucleated RBC % 0.1 Sodium 139 (135-145) mmol/L Potassium 4.1 (3.5-5.0) mmol/L Chloride 104 (101-111) mmol/L Carbon Dioxide 30 (22-32) mmol/L Anion Gap 5 (2-11) mmol/L BUN 19 (6-24) mg/dL Creatinine 1.12 (0.67-1.17) mg/dL Est GFR ( Amer) 82.7 (>60) Est GFR (Non-Af Amer) 68.3 (>60) BUN/Creatinine Ratio 17.0 (8-20) Glucose 99 (70-100) mg/dL Lactic Acid 0.9 (0.5-2.0) mmol/L Calcium 9.6 (8.6-10.3) mg/dL Total Bilirubin 0.40 (0.2-1.0) mg/dL AST 25 (13-39) U/L ALT 19 (7-52) U/L Alkaline Phosphatase 56 (34-104) U/L C-Reactive Protein < 1.00 (<8.01) mg/L Total Protein 7.3 (6.4-8.9) g/dL Albumin 4.5 (3.2-5.2) g/dL Globulin 2.8 (2-4) g/dL Albumin/Globulin Ratio 1.6 (1-3) Lipase 19 (11.0-82.0) U/L Urine Color Urine Appearance Urine pH (5-9) Ur Specific Tuthill (1.010-1.030) Urine Protein (Negative) Urine Ketones (Negative) Urine Blood (Negative) Urine Nitrate (Negative) Urine Bilirubin (Negative) Urine Urobilinogen (Negative) Ur Leukocyte Esterase (Negative) Urine Glucose (Negative) Urine Ascorbic Acid (Negative) 01/28/19 Range/Units 19:40 WBC (3.5-10.8) 10^3/uL RBC (4.18-5.48) 10^6 /uL Hgb (14.0-18.0) g/dL Hct (42-52) % MCV (80-94) fL MCH (27-31) pg MCHC (31-36) g/dL RDW (10-15) % Plt Count (150-450) 10^3/uL MPV (7.4-10.4) fL Neut % (Auto) % Lymph % (Auto) % Hale % (Auto) % Eos % (Auto) % Baso % (Auto) % Absolute Neuts (auto) (1.5-7.7) 10^3/ul Absolute Lymphs (auto) (1.0-4.8) 10^3/ul Absolute Monos (auto) (0-0.8) 10^3/ul Absolute Eos (auto) (0-0.6) 10^3/ul Absolute Basos (auto) (0-0.2) 10^3/ul Absolute Nucleated RBC 10^3/ul Nucleated RBC % Sodium (135-145) mmol/L Potassium (3.5-5.0) mmol/L Chloride (101-111) mmol/L Carbon Dioxide (22-32) mmol/L Anion Gap (2-11) mmol/L BUN (6-24) mg/dL Creatinine (0.67-1.17) mg/dL Est GFR ( Amer) (>60) Est GFR (Non-Af Amer) (>60) BUN/Creatinine Ratio (8-20) Glucose (70-100) mg/dL Lactic Acid (0.5-2.0) mmol/L Calcium (8.6-10.3) mg/dL Total Bilirubin (0.2-1.0) mg/dL AST (13-39) U/L ALT (7-52) U/L Alkaline Phosphatase (34-104) U/L C-Reactive Protein (<8.01) mg/L Total Protein (6.4-8.9) g/dL Albumin (3.2-5.2) g/dL Globulin (2-4) g/dL Albumin/Globulin Ratio (1-3) Lipase (11.0-82.0) U/L Urine Color Straw Urine Appearance Clear Urine pH 7.0 (5-9) Ur Specific Tuthill 1.008 L (1.010-1.030) Urine Protein Negative (Negative) Urine Ketones Negative (Negative) Urine Blood Negative (Negative) Urine Nitrate Negative (Negative) Urine Bilirubin Negative (Negative) Urine Urobilinogen Negative (Negative) Ur Leukocyte Esterase Negative (Negative) Urine Glucose Negative (Negative) Urine Ascorbic Acid * A (Negative) Result Diagrams: 01/28/19 19:22 01/28/19 19:22 Lab Statement: Any lab studies that have been ordered have been reviewed, and results considered in the medical decision making process. - CT abd CT Interpretation Completed By: Radiologist Summary of CT Findings: IMPRESSION: 1. A small hiatal hernia. 2. Mild mucosal thickening of the distal stomach and proximal small bowel which. is nonspecific however may be seen in gastroenteritis. 3. Hepatomegaly. 4. Enlarged prostate gland. Re-Evaluation - Re-Evaluation First Eval Re-Evaluation Time: 21:14 Change: Improved Comment: pain better Second Eval Re-Evaluation Time: 22:45 Comment: discussed CT results GIGU Course/Dx - Course Course Of Treatment: 53-year-old male presents with abdominal pain for the past couple days. He has history of IBS and constipation at baseline. He takes medications for his IBS that causes Diarrhea. He states has his baseline diarrhea. no blood or mucous in stool. He states has been having increasing on the right side. Also to feeling feverish and having nausea and vomiting. He has history of diverticulitis and had his colon resected. denies any chest pressures or shortness of breath. No urinary symptoms. On exam mild tenderness right lower quadrant. wbc normal. CRP normal. CT shows gastroenteritis. will give zofran. patient understand and agrees with plan. - Diagnoses Differential Diagnoses - Male: Colitis, Gastroenteritis (Bacterial), Gastroenteritis (Viral) Provider Diagnoses: Abdominal pain Discharge - Sign-Out/Discharge Documenting (check all that apply): Patient Departure Patient Received Moderate/Deep Sedation with Procedure: No - Discharge Plan Condition: Good Disposition: HOME Prescriptions: Ondansetron ODT TAB* [Zofran 4 MG Odt TAB*] 4 mg PO Q6H PRN #16 tab.odt PRN Reason: Nausea Patient Education Materials: Gastroenteritis (ED) Referrals: Santiago Landeros MD [Primary Care Provider] - Additional Instructions: Can take Zofran up to two tabs every 6 hours as needed for nausea Drink small amounts of fluid as tolerated When able to eat follow BRAT diet: Bananas, rice, applesauce, toast Take Tylenol for pain as needed every 6 hours Follow up with primary within 5 days Return to ED if develop any new or worsening symptoms - Billing Disposition and Condition Condition: GOOD Disposition: Home
[2019-01-28] MEDS ORDERED: O ndansetron ODT 4MG 5TAB PRPK 4 MG PAK PO ONE (22:51)
[2019-01-28 23:35] VITALS: BP 123/78
== END 2019-01-28 23:37 | disposition home or self-care (01) ==
LOC: ED 18:12
DX: R10.9 Unspecified abdominal pain (principal); Z88.5 Allergy status to narcotic agent; Z88.0 Allergy status to penicillin; Z79.899 Other long term (current) drug therapy; Z87.891 Personal history of nicotine dependence; K21.9 Gastro-esophageal reflux disease without esophagitis; K44.9 Diaphragmatic hernia without obstruction or gangrene; R16.0 Hepatomegaly, not elsewhere classified; N40.0 Benign prostatic hyperplasia without lower urinary tract symptoms
CPT/HCPCS: 36415; 74177; 80053; 81003; 83605; 83690; 85025; 86140; 96361; 96374; 96375; 99284; A9270-GY; J1885; J2405; Q9967